=== PATIENT | male | born 1990 | race Caucasian/White ===

== ENCOUNTER 2020-05-26 14:11 | Inpatient (IN) ==
[2020-05-26] MEDS ORDERED: SODIUM CHLORIDE 0.9% 1000ML 1,000 ML IV STA ×2 (14:39→16:18)
[2020-05-26] MEDS ORDERED: METOCLOPRAMIDE HCL INJ 5 MG/ML 2 ML VIAL IV STA (15:15)
[2020-05-26] MEDS ORDERED: diphenhydrAMINE 50 MG/ML VIAL IV STA (15:15)
[2020-05-26] MEDS ORDERED: LORazepam 1 MG/2 ML VIAL IV STA (15:15)
[2020-05-26 15:20] LABS: Basophils # (auto) 0.01 K/uL (0-0.2); Basophils % (auto) 0.2 %; Eosinophils # (auto) 0.02 K/uL (0-0.5); Eosinophils % (auto) 0.4 %; Hematocrit (blood only) 35.9 % (42-52); Hemoglobin 12.3 g/dL (14.0-18.0); Immature Granulocytes # (auto) 0.04 K/uL (0.00-0.02); Immature Granulocytes % (auto) 0.8 %; Lymphocytes # (auto) 0.63 K/uL (1.2-3.4); Mean Corpuscular Hemoglobin 34.1 pg (25-34); Mean Corpuscular Hgb Conc 34.3 g/dL (32-36); Mean Corpuscular Volume 99.4 fL (80-100); Mean Platelet Volume 9.1 fL (7.4-10.4); Monocytes # (auto) 0.49 K/uL (0.11-0.59); Monocytes % (auto) 10.1 %; Neutrophils # (auto) 3.66 K/uL (1.4-6.5); Neutrophils % (auto) 75.5 %; Platelet Count 194 K/uL (130-400); RDW Coefficient of Variation 16.2 % (11.5-14.5); RDW Standard Deviation 58.5 fL (36.4-46.3); Red Blood Count 3.61 M/uL (4.7-6.1); White Blood Count 4.85 K/uL (4.8-10.8)
[2020-05-26 15:37] LABS: Alanine Aminotransferase 189 U/L (12-78); Albumin Level 3.5 gm/dl (3.4-5.0); Aspartate Aminotransferase 250 U/L (15-37); BUN Creatinine Ratio 15.6 (10-20); Blood Urea Nitrogen 9 mg/dl (7-18); Carbon Dioxide 27 mmol/L (21-32); Chloride 91 mmol/L (98-107); Creatinine Clr Calc Pharmacy 222.2 ml/min; Est GFR (African American) > 150.0; Est GFR (Non-African American) 137.8; Glucose 115 mg/dl (70-99); Lipase 319 U/L (73-393); Sodium 130 mmol/L (136-145)
[2020-05-26 15:40] LABS: Albumin Globulin Ratio 0.9 (0.9-2); Alkaline Phosphatase 303 U/L (45-117); Bilirubin,Total 2.9 mg/dl (0.2-1); Total Protein 7.5 gm/dl (6.4-8.2)
[2020-05-26] MEDS: POTASSIUM CHLORIDE / WTR 10 MEQ/100 ML PLCT IV SCH ×3 (16:23→23:48)
--- NOTE | 2020-05-26 16:56 | Ultrasound Report ---
US gallbladder CLINICAL HISTORY: elevated LFTs COMPARISON STUDY: No previous studies for comparison. FINDINGS: Visualized portions the pancreas appeared unremarkable. The liver was of increased echogenicity and difficult to penetrate. The findings are suggestive of he patic steatosis. There is no ductal dilatation. The common bile duct measures 4 mm. There is no right-sided hydronephrosis. No gallstones were visualized. Equivocal trace sludge within the gallbladder, may be artifactual. IMPRESSION: 1. Increased hepatic echogenicity, nonspecific finding most often seen in hepatic steatosis. Mild hep atomegaly 2. No gallstones identified. Trace gallbladder sludge versus artifact 3. No evidence of ductal dilatation ACT 112: Negative or not required by law. Electronically signed by: Darryn Christopher M.D. 05/26/2020 4:55 PM
[2020-05-26 17:58] LABS: INR 1.1 (0.9-1.1); Prothrombin Time 10.9 Seconds (9.0-12.0)
--- NOTE | 2020-05-26 18:00 | Emergency Department Note ---
Impression & Plan Nausea & vomiting, Elevated LFTs, Hypokalemia ED Provider Note INFORMANT: Patient ED PROVIDER(S): Arvind Moctezuma MD CHIEF COMPLAINT: Vomiting PLAN: Disposition: Admitted Condition: Good Outpatient prescription management: none Referral: None MEDICAL DECISION MAKING: Patient presented because of vomiting. An IV was established. He was treated with IV Reglan, Benadryl, and Ativan. He was hydrated. His potassium was found to be mildly low and he was given IV potassium. The patient was given gentle saline hydration as well. The patient underwent ultrasound imaging secondary to elevated LFTs. His ultrasound imaging did not reveal any significant findings. INR is pending. Consultation was made with Dr. Yanira Pope from GI. He recommended inpatient treatment with electrolyte replacement, monitoring of LFTs, MRCP, and consultation with Dr. Barrett tomorrow. I did place a consult with Dr. Landeros of the hospitalist service. Patient will be admitted for further management. Patient and mother pleased with the treatment and plan of further work-up in the hospital. Triage Nursing notes reviewed and agree them. Additional history obtained from patient's mother Vital Signs: reviewed and remarkable for no significant abnormalities Differential diagnosis: Etiologies such as gastroenteritis, food borne illness, infections, appendicitis, diverticulitis, inflammatory bowel disease, GI bleed, biliary pathology, as well as others were entertained. Diagnostics interpreted by me: ECG: Twelve-lead ECG reveals normal sinus rhythm at 96 bpm. LVH. Prolonged QT interval present. No ST elevation or depression. No PACs or PVCs. Normal axis. Cardiac Monitoring: Cardiac monitoring ordered by me: The patient was placed on continuous cardiac monitoring and observed. It revealed a normal sinus rhythm at 99 beats per minute without ectopy or evidence of dysrhythmia. Imaging studies: Gallbladder ultrasound negative for acute pathology as noted above. I refer you to the EMR. Consultation(s): Gastroenterology Hospitalist service HPI: The patient is a 29 year old male who presents to the Emergency Room with complaints of nausea and vomiting. This started intermittently several months ago and is worsening. The patient also notes the following associated symptoms, weakness, fatigue. The patient has been prescribed Zofran and potassium unsuccessfully for relieving factors. Current pain is rated as 0/10. Patient states he had an evaluation in [place] where he is from which included a CAT scan and ultrasound. He reports that those are negative. He does not have the results with him. He states that he was only found to have a fatty liver. He has no history of elevated liver functions. He denies any significant Tylenol use or alcohol use. Patient denies marijuana use as well. No sick contacts. Given his illness he is currently staying with his mother locally. Pt denies LOC, headache, fevers, chills, diaphoresis, visual changes, neck pain, chest pain, breathing difficulties, abdominal pain, back pain, melena, hematochezia, urinary symptoms, numbness, lymphadenopathy, rash, or other complaints. ROS: See above HPI for pertinent positives & negatives. A total of 10 systems reviewed and were otherwise negative. PAST MEDICAL HISTORY:See Below , anxiety PAST SURGICAL HISTORY:See Below, FAMILY HISTORY:See Below SOCIAL HISTORY:See Below, no alcohol HOME MEDICATIONS:See Below ALLERGIES:See Below VITALS:See Below PHYSICAL EXAMINATION: GENERAL: Awake, alert, uncomfortable-appearing, in no distress HENT: Normocephalic, atraumatic. Oropharynx unremarkable. EYES: Normal conjunctiva. Sclera mildly icteric. NECK: Inspection normal. Non-tender. Supple. No nuchal rigidity. FROM. No masses. RESPIRATORY: Clear to auscultation. No wheezes. No rales. Normal respiratory effort. CARDIAC: Normal rate. Normal rhythm. No murmurs. No rubs. Extremities warm and well perfused. Pulses equal. No JVD. GI: Soft, non-distended. No tenderness to palpation. No rebound or guarding. No masses. RECTAL: Deferred. MUSCULOSKELETAL: Atraumatic. Chest examination reveals no tenderness. The back is symmetrical on inspection without obvious abnormality. There is no CVA tenderness to palpation. No joint edema. LOWER EXTREMITIES: Calves are equal size bilaterally and non-tender. No edema. No discoloration. NEURO: Normal sensorium. No sensory or motor deficits noted. SKIN: No rash or jaundice noted. Arvind Moctezuma MD Past Med/Surg History Social History Smoking Status: Never smoker Feels Safe at Home: Yes Allergies Allergies Allergy/AdvReac Type Severity Reaction Status Date / Time No Known Allergies Allergy Unverified 05/26/20 15:50 Home Meds Home Medications Medication Instructions Recorded Confirmed escitalopram oxalate 20 mg PO DAILY 05/26/20 05/26/20 lisinopril 20 mg PO DAILY 05/26/20 05/26/20 nitrofurantoin monohyd/m-cryst 100 mg PO BID 05/26/20 05/26/20 omeprazole 40 mg PO DAILY 05/26/20 05/26/20 ondansetron HCl 4 mg PO Q6H PRN 05/26/20 05/26/20 potassium chloride 20 meq PO BID 05/26/20 05/26/20 Results & Data (ED) Vital Signs Vital Signs - 24 hr 05/26/20 14:15 05/26/20 14:37 05/26/20 14:41 Temperature 36.7 C Temperature Source Temporal Artery Scan Pulse Rate 122 H 100 H 104 H Pulse Rate [Apical] 103 H Pulse Rate from SpO2 Sensor 102 H 102 H Pulse Rhythm Regular Pulse Rhythm [Apical] Regular Pulse Strength Normal Pulse Strength [Apical] Normal Respiratory Rate 24 12 22 Respiratory Effort / Characteristics Non-Labored Spontaneous Non-Labored Spontaneous Respiratory Depth Normal Normal Respiratory Pattern Regular Blood Pressure 125/88 136/83 Blood Pressure [Left Arm] 136/83 Blood Pressure Mean 100 100 Blood Pressure Mean [Left Arm] 100 Blood Pressure Position [Left Arm] Semi-fowlers Pulse Oximetry 100 97 98 Oxygen Delivery Method Room Air Room Air Sepsis Recent Fever Within 48 Hours No Sepsis New/Unexplained Change in Mental Status N/A Sepsis Action Taken by Nursing No Action Required 05/26/20 14:50 05/26/20 14:53 05/26/20 15:00 Temperature Temperature Source Pulse Rate 99 H 102 H 99 H Pulse Rate [Apical] Pulse Rate from SpO2 Sensor 99 H 99 H Pulse Rhythm Regular Pulse Rhythm [Apical] Pulse Strength Pulse Strength [Apical] Respiratory Rate 20 20 17 Respiratory Effort / Characteristics Respiratory Depth Respiratory Pattern Blood Pressure 120/79 Blood Pressure [Left Arm] Blood Pressure Mean 92 Blood Pressure Mean [Left Arm] Blood Pressure Position [Left Arm] Pulse Oximetry 96 98 93 Oxygen Delivery Method Room Air Sepsis Recent Fever Within 48 Hours Sepsis New/Unexplained Change in Mental Status Sepsis Action Taken by Nursing 05/26/20 15:01 05/26/20 15:10 05/26/20 15:20 Temperature Temperature Source Pulse Rate 96 H 97 H 91 H Pulse Rate [Apical] Pulse Rate from SpO2 Sensor 96 H 97 H 92 H Pulse Rhythm Pulse Rhythm [Apical] Pulse Strength Pulse Strength [Apical] Respiratory Rate 17 21 12 Respiratory Effort / Characteristics Respiratory Depth Respiratory Pattern Blood Pressure Blood Pressure [Left Arm] Blood Pressure Mean Blood Pressure Mean [Left Arm] Blood Pressure Position [Left Arm] Pulse Oximetry 97 98 99 Oxygen Delivery Method Sepsis Recent Fever Within 48 Hours Sepsis New/Unexplained Change in Mental Status Sepsis Action Taken by Nursing 05/26/20 15:30 05/26/20 15:31 05/26/20 15:40 Temperature Temperature Source Pulse Rate 85 88 89 Pulse Rate [Apical] Pulse Rate from SpO2 Sensor 85 90 87 Pulse Rhythm Pulse Rhythm [Apical] Pulse Strength Pulse Strength [Apical] Respiratory Rate 18 19 13 Respiratory Effort / Characteristics Respiratory Depth Respiratory Pattern Blood Pressure 120/88 Blood Pressure [Left Arm] Blood Pressure Mean 98 Blood Pressure Mean [Left Arm] Blood Pressure Position [Left Arm] Pulse Oximetry 99 99 100 Oxygen Delivery Method Sepsis Recent Fever Within 48 Hours Sepsis New/Unexplained Change in Mental Status Sepsis Action Taken by Nursing 05/26/20 15:50 05/26/20 16:00 05/26/20 16:01 Temperature Temperature Source Pulse Rate 90 89 95 H Pulse Rate [Apical] Pulse Rate from SpO2 Sensor 90 88 94 H Pulse Rhythm Pulse Rhythm [Apical] Pulse Strength Pulse Strength [Apical] Respiratory Rate 18 17 19 Respiratory Effort / Characteristics Respiratory Depth Respiratory Pattern Blood Pressure 123/70 Blood Pressure [Left Arm] Blood Pressure Mean 87 Blood Pressure Mean [Left Arm] Blood Pressure Position [Left Arm] Pulse Oximetry 100 100 99 Oxygen Delivery Method Sepsis Recent Fever Within 48 Hours Sepsis New/Unexplained Change in Mental Status Sepsis Action Taken by Nursing 05/26/20 16:10 05/26/20 16:20 05/26/20 16:58 Temperature Temperature Source Pulse Rate 88 89 Pulse Rate [Apical] Pulse Rate from SpO2 Sensor 89 88 113 H Pulse Rhythm Pulse Rhythm [Apical] Pulse Strength Pulse Strength [Apical] Respiratory Rate 19 19 Respiratory Effort / Characteristics Respiratory Depth Respiratory Pattern Blood Pressure Blood Pressure [Left Arm] Blood Pressure Mean Blood Pressure Mean [Left Arm] Blood Pressure Position [Left Arm] Pulse Oximetry 97 98 95 Oxygen Delivery Method Sepsis Recent Fever Within 48 Hours Sepsis New/Unexplained Change in Mental Status Sepsis Action Taken by Nursing 05/26/20 16:59 05/26/20 17:00 05/26/20 17:01 Temperature Temperature Source Pulse Rate 99 H Pulse Rate [Apical] Pulse Rate from SpO2 Sensor 105 H 99 H 100 H Pulse Rhythm Pulse Rhythm [Apical] Pulse Strength Pulse Strength [Apical] Respiratory Rate 20 Respiratory Effort / Characteristics Respiratory Depth Respiratory Pattern Blood Pressure 116/75 118/81 Blood Pressure [Left Arm] Blood Pressure Mean 88 93 Blood Pressure Mean [Left Arm] Blood Pressure Position [Left Arm] Pulse Oximetry 99 95 98 Oxygen Delivery Method Sepsis Recent Fever Within 48 Hours Sepsis New/Unexplained Change in Mental Status Sepsis Action Taken by Nursing Laboratory Data Result diagrams: 05/26/20 15:01 05/26/20 15:01 Lab Results 05/26/20 05/26/20 05/26/20 Range/Units 14:43 15:01 15:01 WBC 4.85 (4.8-10.8) K/uL RBC 3.61 L (4.7-6.1) M/uL Hgb 12.3 L (14.0-18.0) g/dL Hct 35.9 L (42-52) % MCV 99.4 (80-100) fL MCH 34.1 H (25-34) pg MCHC 34.3 (32-36) g/dL RDW Std Deviation 58.5 H (36.4-46.3) fL RDW Coeff of Donal 16.2 H (11.5-14.5) % Plt Count 194 (130-400) K/uL MPV 9.1 (7.4-10.4) fL Immature Gran % (Auto) 0.8 % Neut % (Auto) 75.5 % Lymph % (Auto) 13.0 % Cedar % (Auto) 10.1 % Eos % (Auto) 0.4 % Baso % (Auto) 0.2 % Neut # (Auto) 3.66 (1.4-6.5) K/uL Lymph # (Auto) 0.63 L (1.2-3.4) K/uL Cedar # (Auto) 0.49 (0.11-0.59) K/uL Eos # (Auto) 0.02 (0-0.5) K/uL Baso # (Auto) 0.01 (0-0.2) K/uL Immature Gran # (Auto) 0.04 H (0.00-0.02) K/uL Sodium 130 L (136-145) mmol/L Potassium 3.0 L (3.5-5.1) mmol/L Chloride 91 L (98-107) mmol/L Carbon Dioxide 27 (21-32) mmol/L Anion Gap 12.0 H (3-11) BUN 9 (7-18) mg/dl Creatinine 0.56 L (0.6-1.4) mg/dl Est Cr Clr Drug Dosing 222.2 ml/min Est GFR ( Amer) > 150.0 Est GFR (Non-Af Amer) 137.8 BUN/Creatinine Ratio 15.6 (10-20) Glucose 115 H (70-99) mg/dl POC Glucose 127 H (70-99) mg/dl Calcium 10.0 (8.5-10.1) mg/dl Total Bilirubin 2.9 H (0.2-1) mg/dl AST 250 H (15-37) U/L ALT 189 H (12-78) U/L Alkaline Phosphatase 303 H (45-117) U/L Total Protein 7.5 (6.4-8.2) gm/dl Albumin 3.5 (3.4-5.0) gm/dl Globulin 4.0 (2.5-4.0) gm/dl Albumin/Globulin Ratio 0.9 (0.9-2) Lipase 319 (73-393) U/L COVID-19 Eval Order 05/26/20 Range/Units 17:30 WBC (4.8-10.8) K/uL RBC (4.7-6.1) M/uL Hgb (14.0-18.0) g/dL Hct (42-52) % MCV (80-100) fL MCH (25-34) pg MCHC (32-36) g/dL RDW Std Deviation (36.4-46.3) fL RDW Coeff of Donal (11.5-14.5) % Plt Count (130-400) K/uL MPV (7.4-10.4) fL Immature Gran % (Auto) % Neut % (Auto) % Lymph % (Auto) % Cedar % (Auto) % Eos % (Auto) % Baso % (Auto) % Neut # (Auto) (1.4-6.5) K/uL Lymph # (Auto) (1.2-3.4) K/uL Cedar # (Auto) (0.11-0.59) K/uL Eos # (Auto) (0-0.5) K/uL Baso # (Auto) (0-0.2) K/uL Immature Gran # (Auto) (0.00-0.02) K/uL Sodium (136-145) mmol/L Potassium (3.5-5.1) mmol/L Chloride (98-107) mmol/L Carbon Dioxide (21-32) mmol/L Anion Gap (3-11) BUN (7-18) mg/dl Creatinine (0.6-1.4) mg/dl Est Cr Clr Drug Dosing ml/min Est GFR ( Amer) Est GFR (Non-Af Amer) BUN/Creatinine Ratio (10-20) Glucose (70-99) mg/dl POC Glucose (70-99) mg/dl Calcium (8.5-10.1) mg/dl Total Bilirubin (0.2-1) mg/dl AST (15-37) U/L ALT (12-78) U/L Alkaline Phosphatase (45-117) U/L Total Protein (6.4-8.2) gm/dl Albumin (3.4-5.0) gm/dl Globulin (2.5-4.0) gm/dl Albumin/Globulin Ratio (0.9-2) Lipase (73-393) U/L COVID-19 Eval [facility] Administered Medications Potassium Chloride (K Mendel / Wtr) 10 meq in 100 mls @ 100 mls/hr IV Q1H DOLORES Stop: 05/26/20 18:29 Last Admin: 05/26/20 16:23 Dose: 100 mls/hr Documented by: [id number] Sodium Chloride (Nss 1000ml) 1,000 mls @ 125 mls/hr IV .Q8H STA Stop: 05/27/20 00:17 Last Admin: 05/26/20 16:23 Dose: 125 mls/hr Documented by: [id number] Discontinued Medications Diphenhydramine HCl (Diphenhydramine 50 Mg/Ml Vial) 25 mg IV NOW STA Stop: 05/26/20 15:16 Last Admin: 05/26/20 15:26 Dose: 25 mg Documented by: [id number] Sodium Chloride (Nss 1000ml) 1,000 mls @ 999 mls/hr IV .Q1H1M STA Stop: 05/26/20 15:39 Last Infusion: 05/26/20 16:13 Dose: 0 mls/hr Documented by: [id number] Admin: 05/26/20 15:02 Dose: 999 mls/hr Documented by: [id number] Lorazepam (Ativan) 1 mg in 2 mls @ 2 mls/min IV NOW STA Stop: 05/26/20 15:16 Last Admin: 05/26/20 15:26 Dose: 2 mls/min Documented by: [id number] Metoclopramide HCl (Metoclopramide Hcl Inj 5 Mg/Ml 2 Ml Vial) 10 mg IV NOW STA Stop: 05/26/20 15:16 Last Admin: 05/26/20 15:26 Dose: 10 mg Documented by: [id number] Discharge Plan Visit Data Chief Complaint: Vomiting Stated Complaint: THROWING UP/1ST VACCINE YESTERDAY ED Provider: Arvind Moctezuma Discharge Problem: Nausea & vomiting, Elevated LFTs, Hypokalemia Forms Stand Alone Forms: My [facility] Prescriptions Prescriptions: No Action lisinopril 20 mg tablet 20 mg PO DAILY RF: 0 ondansetron HCl 4 mg tablet 4 mg PO Q6H PRN (Reason: Nausea And Vomiting) RF: 0 omeprazole 40 mg capsule,delayed release(DR/EC) 40 mg PO DAILY RF: 0 potassium chloride 20 mEq tablet,ER particles/crystals 20 meq PO BID RF: 0 escitalopram oxalate 20 mg tablet 20 mg PO DAILY RF: 0 nitrofurantoin monohyd/m-cryst 100 mg capsule 100 mg PO BID RF: 0
--- NOTE | 2020-05-26 18:09 | History & Physical Report ---
Date of Service May 26, 2020 Assessment & Plan (1) Acute hyponatremia: Secondary to alcohol consumption and dehydration NSS @125 mL (2) Hypokalemia: Replace in IV fluids Repeat BMP in AM (3) GERD (gastroesophageal reflux disease): Continue pantoprazole 40mg PO BID If no plans on EGD consider carafate Consult GI (4) Hepatic steatosis: Suspected alcoholic liver disease. Basic workup performed with hepatitis panel, acetaminophen level MRCP and will consult GI (5) Elevated LFTs: Unknown if this is his baseline but I suspect it is secondary to alcohol intake Repeat with AM labs (6) Alcohol use disorder: Encouraged complete cessation. Consider outpatient alcoholic Anonymous / rehabilitation. (7) Nausea & vomiting: Advance diet as tolerated Use Phenergan first-line Ativan second line Suspect related to GERD rather than alcohol withdrawal per history (8) Ambulatory dysfunction: ?Peripheral neuropathy versus Wernicke's (no nystagmus or encephalopathy) Mg, B1 and B12 levels with AM labs Start thiamine 100mg PO QAM (9) Prolonged QT interval: Continue on his usual Lexapro 20 mg p.o. daily but avoid further QT prolonging agents including ondansetron. Admission and Anticipated Discharge Date Admission Date: May 26, 2020 History of Present Illness Chief Complaint: Nausea, vomiting Primary Care Provider: Pranav Thomas MD Lex Cao is a 29-year-old male who presents to the ER with abdominal pain, nausea, vomiting. He reports having "stomach issues" since May last year mainly with nausea, dry heaving and vomiting but also generalized mild abdominal pain. He lives in [place] and has been seen by his PCP and a hospital ER (he cannot remember the name) in [place] and diagnosed with hepatic steatosis of unknown cause. He has been seen by a manager philosophy for pre-EGD discussion which he has scheduled for June. While waiting for this he decided to come live with his mother in [place] and on his way down due to worsening ambulatory dysfunction, dry heaving and not being able to keep food or water down for the last few days his mother decided to bring him to [facility] ER on his way up from [place]. Associated generalized weakness, no vision or memory changes. Now needing a cane to walk. He drinks alcohol on a near daily basis with 2-3 hard liquor mixed drinks a day, more on the weekends. He does report discussing this with his GI physician in [place] but mainly talked about getting an EGD. He has continued to drink alcohol. Last drink 2 days ago. He does report usually having mild withdrawal symptoms the day after not drinking alcohol ("feels bad") but no history of alcohol withdrawals needing hospitalization. He feels his nausea/vomiting episodes are unrelated to when he stops drinking and can happen at any time. In the ER US was concerning for hepatic steatosis. Case was discussed between the ER physician and Dr Lopez and recommended ERCP and admission for rehydration, GI to review patient in AM. Allergies Allergy/AdvReac Type Severity Reaction Status Date / Time No Known Allergies Allergy Unverified 05/26/20 15:50 Home Medications Medication Instructions Recorded Confirmed Type escitalopram oxalate 20 mg PO DAILY 05/26/20 05/26/20 History lisinopril 20 mg PO DAILY 05/26/20 05/26/20 History nitrofurantoin monohyd/m-cryst 100 mg PO BID 05/26/20 05/26/20 History omeprazole 40 mg PO DAILY 05/26/20 05/26/20 History ondansetron HCl 4 mg PO Q6H PRN 05/26/20 05/26/20 History potassium chloride 20 meq PO BID 05/26/20 05/26/20 History Past Med/Surg History Medical History GERD (gastroesophageal reflux disease) Hepatic steatosis Social History Smoking Status: Light tobacco smoker Second Hand Exposure: No; Do You Dip or Chew Tobacco: No; Tobacco Cessation Education Requested by Patient: No Hx Alcohol Use: Yes Alcohol type: hard liquor Hx Substance Use: No Preferred Language: [place] Communication Ability: Effective Senior Ui Designer Required: No Beliefs That Will Affect Care: None Current Living Situation: Parent Current Living Situation Comment: Currently staying with Mother in [place], [place]. Other Information That Helps Us Care for You: No Feels Safe at Home: Yes Safety Concerns: Feels Safe At This Time Assistive Devices: Cane Assistive Devices Comment: Cane use started recently for weakness in legs. Review of Systems Review of Systems: All systems reviewed & are unremarkable except as noted in HPI & below Gastrointestinal: + belching, + bloating, + nausea and + vomiting; no coffee ground emesis, no hematemesis, no pain with swallowing, no dysphagia, no constipation, no diarrhea/loose stools, no blood in stools and no melena Physical Exam Constitutional: WD/WN, vitals as above Eyes: sclerae not anicteric and normal pupil size ENMT: external ear and nose normal, oropharynx normal Neck: trachea midline, no thyromegaly Respiratory: normal respiratory effort, lungs clear to auscultation Cardiovascular: RRR, no murmur, no edema Gastrointestinal (Abdomen): Inspection/Auscultation: normal bowel sounds Percussion/Palpation: abdomen soft and + hepatomegaly; abdomen nontender, no guarding and abdomen not rigid Musculoskeletal: no cyanosis or clubbing, extremities motor strength 5/5 Skin: no rashes, warm and dry Neurologic: deep tendon reflexes 2+ bilaterally, moves all extremities and awake; no focal motor deficits and not confused Speech / Cognition: normal speech Motor/Sensory: no tremor and no pronator drift Psychiatric: A+Ox3, euthymic affect Genitourinary: no CVA tenderness Results & Data Results & Data ([facility]) Vital Signs (Past 12 Hours) Vital Signs Temp Pulse Pulse Resp BP BP Pulse Ox 05/26/20 17:01 99 H 20 98 05/26/20 17:00 118/81 95 05/26/20 16:59 116/75 99 05/26/20 16:58 95 05/26/20 16:20 89 19 98 05/26/20 16:10 88 19 97 05/26/20 16:01 95 H 19 99 05/26/20 16:00 89 17 123/70 100 05/26/20 15:50 90 18 100 05/26/20 15:40 89 13 100 05/26/20 15:31 88 19 99 05/26/20 15:30 85 18 120/88 99 05/26/20 15:20 91 H 12 99 05/26/20 15:10 97 H 21 98 05/26/20 15:01 96 H 17 97 05/26/20 15:00 99 H 17 120/79 93 05/26/20 14:53 102 H 20 98 05/26/20 14:50 99 H 20 96 05/26/20 14:41 104 H 22 98 05/26/20 14:37 100 H 103 H 12 136/83 136/83 97 05/26/20 14:15 36.7 C 122 H 24 125/88 100 Diagnostic Findings US gallbladder IMPRESSION: 1. Increased hepatic echogenicity, nonspecific finding most often seen in hepatic steatosis. Mild hepatomegaly 2. No gallstones identified. Trace gallbladder sludge versus artifact 3. No evidence of ductal dilatation Medications Administered ER medications given: NSS 1 hour bolus Metoclopramide 10 mg IV Lorazepam 1 mg IV Diphenhydramine 25 mg IV KCl 20 meq IV ECG Rate (beats per minute): 96 Rhythm: normal sinus Findings: + prolonged QT (QTC 573 ms) Comparison ECG Date: no prior available Code Status & VTE Plan Code Status Full VTE Prophylaxis Plan VTE Prophylaxis will be ordered: No Reason for no VTE drug order: Treatment not indicated Reason for no VTE mechanical prophylaxis: Treatment not indicated PG Care Time/CCT Total # of Minutes Spent Total Time Spent with Patient: Total time spent is greater than 50% in coordination of care (as documented) at patient's floor/unit and/or counseling patient: Coding Level of Care Code 25848 OBS Care - Level 3 Diagnoses Acute hyponatremia E87.1 Hypokalemia E87.6 GERD (gastroesophageal reflux disease) K21.9 Hepatic steatosis K76.0 Elevated LFTs R79.89 Alcohol use disorder Nausea & vomiting R11.2 Ambulatory dysfunction R26.2 Prolonged QT interval R94.31
[2020-05-26 19:50] LABS: Ferritin 2797.2 ng/ml (8-388); Thyroid Stimulating Hormone 1.73 uIu/ml (0.300-4.500)
--- NOTE | 2020-05-26 19:55 | Magnetic Resonance Report ---
MR MRCP CLINICAL HISTORY: Abnormal liver tests, nausea and vomiting. Possible choledocholithiasis. COMPARISON STUDY: Biliary ultrasound performed the same day FINDINGS: A breath-hold MRCP was performed. MIP images were acquired. The liver is enlarged measuring 24 cm. There is suspected hepatic steatosis. There is borderline splenomegaly. No gallstones are visualized. There is no intra or extrahepatic biliary ductal dilatation. There is no pancreatic ductal dilatation. The common bile duct measures 3 mm. There are no ductal filling defects to indicate calculi. There are borderline enlarged lymph nodes in the gastrohepatic ligament and sebastian hepatis region IMPRESSION: 1. No gallstones identified. No biliary ductal calculi identified 2. No evidence of intra or extra hepatic biliary ductal dilatation. 3 mm common bile duct 3. Hepatomegaly. Suspected hepatic steatosis. Borderline splenomegaly 4. Borderline enlarged lymph nodes in the gastrohepatic ligament and sebastian hepatis region ACT 112: Negative or not required by law. Electronically signed by: Darryn Christopher M.D. 05/26/2020 7:54 PM
[2020-05-26 19:57] LABS: Hepatitis B Surf Ag Rflx Conf Neg (Neg)
[2020-05-26 20:25] LABS: Hepatitis C IgG 13Yrs+Old_Rflx Neg (Neg)
[2020-05-26] MEDS ORDERED: POTASSIUM CHLORIDE CRTAB 20 MEQ TABCR PO SCH (21:00)
[2020-05-26 22:54] LABS: Appearance Urine Clear (Clear); Bacteria Urine Automated Negative (Negative); Blood Urine Negative (Negative); Color Urine Dark Yellow; Glucose Urine UA Negative (Negative); Ketones Urine 3+ (Negative); Leukocyte Esterase Urine Negative (Negative); Nitrite Urine Positive (Negative); Protein Urine Negative (Negative); RBC Urine Automated 0-4 /hpf (0-4); Specific Gravity Urine 1.018 (1.000-1.030); Urobilinogen Urine Positive (Negative)
[2020-05-26 22:58] LABS: Bilirubin Urine 2+ (Negative)
[2020-05-26] MEDS ORDERED: LORazepam 1 MG/2 ML VIAL IV PRN (23:18)
[2020-05-26] MEDS ORDERED: PROMETHAZINE HCL 12.5 MG in SODIUM CHLORIDE 0.9% 50 ML IV PRN (23:18)
[2020-05-27] MEDS: POTASSIUM CHLORIDE / WTR 10 MEQ/100 ML PLCT IV SCH (00:53)
[2020-05-27] MEDS: POTASSIUM CHLORIDE 40 MEQ in SODIUM CHLORIDE 0.9% 1000ML 1,000 ML IV SCH ×2 (00:56→11:56)
--- NOTE | 2020-05-27 07:18 | Electrocardiogram Report ---
Test Reason : Blood Pressure : / mmHG Vent. Rate : 096 BPM Atrial Rate : 096 BPM P-R Int : 152 ms QRS Dur : 108 ms QT Int : 428 ms P-R-T Axes : 020 000 020 degrees QTc Int : 541 ms Normal sinus rhythm Minimal voltage criteria for LVH, may be normal variant Prolonged QT Abnormal ECG No previous ECGs available Confirmed by Kuldip Herring ([id number]) on 05/27/2020 7:17:56 AM Referred By: REFERRED SELF Confirmed By:Kuldip Herring
[2020-05-27] MEDS: PANTOprazole 40 MG TAB PO SCH ×2 (08:04→21:27)
[2020-05-27] MEDS: ESCITALOPRAM OXALATE 20 MG TAB PO SCH (08:04)
[2020-05-27] MEDS ORDERED: THIAMINE HCL 100 MG TAB PO SCH (09:00)
[2020-05-27] MEDS ORDERED: PANTOprazole 40 MG TAB PO SCH (09:00)
[2020-05-27 09:27] LABS: Hematocrit (blood only) 30.4 % (42-52); Hemoglobin 10.5 g/dL (14.0-18.0); Mean Corpuscular Hemoglobin 34.4 pg (25-34); Mean Corpuscular Hgb Conc 34.5 g/dL (32-36); Mean Corpuscular Volume 99.7 fL (80-100); Mean Platelet Volume 8.7 fL (7.4-10.4); Platelet Count 153 K/uL (130-400); RDW Coefficient of Variation 16.2 % (11.5-14.5); Red Blood Count 3.05 M/uL (4.7-6.1); White Blood Count 3.78 K/uL (4.8-10.8)
[2020-05-27 09:49] LABS: Alanine Aminotransferase 160 U/L (12-78); Albumin Level 2.9 gm/dl (3.4-5.0); Aspartate Aminotransferase 215 U/L (15-37); Blood Urea Nitrogen 4 mg/dl (7-18); Calcium 8.7 mg/dl (8.5-10.1); Carbon Dioxide 24 mmol/L (21-32); Chloride 101 mmol/L (98-107); Creatinine Clr Calc Pharmacy 289.4 ml/min; Est GFR (African American) > 150.0; Est GFR (Non-African American) > 150.0; Glucose 108 mg/dl (70-99); Magnesium 1.6 mg/dl (1.8-2.4); Potassium 3.6 mmol/L (3.5-5.1); Sodium 135 mmol/L (136-145)
[2020-05-27 09:52] LABS: Albumin Globulin Ratio 0.9 (0.9-2); Alkaline Phosphatase 252 U/L (45-117); Bilirubin,Total 2.1 mg/dl (0.2-1); Globulin 3.2 gm/dl (2.5-4.0); Total Protein 6.1 gm/dl (6.4-8.2)
[2020-05-27] MEDS ORDERED: FOLIC ACID 1 MG in SYRINGE 9.8 ML IV ONE (10:30)
[2020-05-27] MEDS: MAGNESIUM SULFATE / D5W 1 GM/100 ML BAG IV SCH ×2 (11:13→13:19)
--- NOTE | 2020-05-27 12:59 | Gastrointestinal Consultation ---
Date of Consultation May 27, 2020 Assessment & Plan (1) GERD (gastroesophageal reflux disease): (2) Abdominal pain: (3) Nausea & vomiting: (4) Elevated LFTs: Continue Pantoprazole 40 mg by mouth twice daily He will need EGD for further evaluation of his symptoms Continue supportive care Discussed case with Dr. George History of Present Illness Reason for Consultation: Elevated LFT's Attending Physician: Isidro George History of Present Illness Lex Cao is a 29 yo CM who presented to the ER with complaints of abdominal pain, nausea, and vomiting. Upon arrival to the ER, he was noted to have significant elevations of his LFT's, as well as anemia. He underwent a RUQ US which showed evidence of hepatic steatosis, but no evidence of cholelithiasis, or CBD dilation. He subsequently underwent an MRCP again without evidence of cholelithiasis or CBD dilation. He was subsequently admitted and placed on Pantoprazole 40 mg by mouth BID and was treated supportively with antiemetics. At the time that I saw him this AM he continued to complain of some nausea and did have a single episode of non-bloody emesis. He did tolerate a regular breakfast this AM. Of note, he admits to a 40 lb unintentional weight loss over the past 6 months. He also admits to significant alcohol intake. He states he was scheduled for an EGD next week in [place], where he currently resides, however, he has been living with his parents due to "feeling poorly." Allergies Allergy/AdvReac Type Severity Reaction Status Date / Time No Known Allergies Allergy Unverified 05/26/20 15:50 Home Medications Medication Instructions Recorded Confirmed Type escitalopram oxalate 20 mg PO DAILY 05/26/20 05/26/20 History lisinopril 20 mg PO DAILY 05/26/20 05/26/20 History nitrofurantoin monohyd/m-cryst 100 mg PO BID 05/26/20 05/26/20 History omeprazole 40 mg PO DAILY 05/26/20 05/26/20 History ondansetron HCl 4 mg PO Q6H PRN 05/26/20 05/26/20 History potassium chloride 20 meq PO BID 05/26/20 05/26/20 History Patient History Medical History GERD (gastroesophageal reflux disease) Hepatic steatosis Social History Smoking Status: Light tobacco smoker Second Hand Exposure: No; Do You Dip or Chew Tobacco: No; Tobacco Cessation Education Requested by Patient: No Hx Alcohol Use: Yes Alcohol type: hard liquor Hx Substance Use: No Preferred Language: Telugu Communication Ability: Effective 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 Other Information That Helps Us Care for You: No Feels Safe at Home: Yes Safety Concerns: Feels Safe At This Time Assistive Devices: None Assistive Devices Comment: Cane use started recently for weakness in legs. Review of Systems Review of Systems: All systems reviewed & are unremarkable except as noted in HPI & below Physical Exam Constitutional: WD/WN, vitals as above Eyes: + anicteric sclerae ENMT: external ear and nose normal, oropharynx normal Neck: trachea midline, no thyromegaly Respiratory: normal respiratory effort, lungs clear to auscultation Cardiovascular: RRR, no murmur, no edema Gastrointestinal (Abdomen): normal bowel sounds, soft, nontender, no hepatosplenomegaly Skin: no rashes, warm and dry Psychiatric: A+Ox3, euthymic affect Results & Data ([facility]) Vital Signs (Past 12 Hours) Vital Signs Temp Pulse Resp BP Pulse Ox 05/27/20 07:28 36.7 C 102 H 16 141/91 H 97 PG Care Time/CCT Total # of Minutes Spent Total Time Spent with Patient: Total time spent is greater than 50% in coordination of care (as documented) at patient's floor/unit and/or counseling patient: Coding Level of Care Code 89799 Inpt Consult Level 4 Diagnoses GERD (gastroesophageal reflux disease) K21.9 Abdominal pain R10.9 Nausea & vomiting R11.2 Elevated LFTs R79.89
[2020-05-27] MEDS: NSS + 20MEQ KCL 20 MEQ/1,000 ML BAG IV SCH (13:18)
[2020-05-27] MEDS: THIAMINE HCL 200 MG in SODIUM CHLORIDE 0.9% 50 ML IV SCH (21:27)
--- NOTE | 2020-05-27 22:39 | Hospitalist Progress Note ---
Date of Service May 27, 2020 Assessment & Plan (1) Nausea & vomiting: Chronic, with associated weight loss. GI consult appreciated. Likely EGD on Friday. In meantime - PPI. Check cortisol in am. MRCP/RUQ u/s results reviewed - no evidence cholecystitis or choledocholithiasis. No pancreatitis on labs or imaging. So far tolerating his diet here. (2) Acute hyponatremia: Improved; Na 135 this am. Cont isotonic fluids; repeat BMP am. (3) Hypokalemia: 2nd to poor oral intake, alcohol abuse, etc. Cont replacement. Fix low mag. Repeat lytes am. (4) GERD (gastroesophageal reflux disease): Continue pantoprazole 40mg PO BID EGD on Friday diet as tolerated. (5) Hepatic steatosis: Fatty liver / alcoholic liver disease. Abnormal LFTs - uncertain baseline, uncertain if acute or chronic or combination. Trend daily LFTs. Needs alcohol cessation tabatha. (6) Elevated LFTs: 2nd to alcohol use. Uncertain how acute vs chronic; daily LFTs. INR intact. Platelets ok. GI consult appreciated. Imaging results all noted. Ferritin high, but trans-sat wnl. Suspect ferritin is high from chronic alcohol. (7) Alcohol use disorder: Encouraged abstinence. Uncertain of where he stands on quitting. (8) Ambulatory dysfunction: Uncertain cause but seems to have proximal muscle weakness in hip region. Alcohol-induced myopathy? Other myositis/myopathy? CPK wnl. B12 wnl. B1 level pending -- in meantime, thiamine 200mg BID. Check sed rate, lyme Ab's, aldolase, etc. I spoke with Dr Gregorio re: his case; consult placed. PT, OT evals. Consider MRI brain, MRI lumbar spine. (9) Prolonged QT interval: Likely 2nd to low K and low mag. Replete both. Will need repeat EKG. (10) Hypomagnesemia: Replete IV; repeat level am. (11) Proximal muscle weakness: see above in "ambulatory dysfunction" (12) DVT prophylaxis: lovenox 40mg daily mother extensively updated at bedside care dw Dr Barrett and Dr Gregorio Admission and Anticipated Discharge Date Admission Date: May 26, 2020 Subjective patient's mother was at bedside during the visit. both provided history. he was in the emergency room a few weeks ago in a [facility] ER for abdominal pain. was told he had fatty liver. was to have GI f/u in [facility] in June. he has had nausea with GI upset/abd pain for about 1 year. during this time period he has continued daily bourbon use - at least 3-4 drinks/day but often more. he has had leg weakness b/l for 6+ months but getting worse in the last 1-2 months. he is now using a cane to ambulate. he has to pull himself up from the toilet by using something to grab on to. also has hard time getting up from chair. arms are fine. no myalgias. does report b/l paresthesias of legs from the knees down to the feet. denies bowel/bladder incontinence or paresthesias over buttocks. nausea starts first thing in the am upon awakening. no nocturnal vomiting or AM vomiting. denies headaches. denies neck pain. some mild lumbar back pain after he had a mild injury a few weeks ago. Review of Systems Constitutional: + weight loss (40 pounds in the last year ); no fever and no chills Respiratory: no cough and no dyspnea Cardiovascular: no chest pain Gastrointestinal: + abdominal pain and + nausea Genitourinary: no urinary incontinence Musculoskeletal: + back pain and + muscle atrophy (thighs b/l ); no neck pain, no joint pain and no myalgia Neurologic: + localized weakness (hip regions) and + paresthesia Physical Exam Constitutional: no acute distress and no altered mental status Eyes: PERRL and EOM intact bilaterally; no nystagmus ENMT: external ear and nose normal, oropharynx normal Respiratory: normal respiratory effort, lungs clear to auscultation Cardiovascular: Rate/Rhythm: regular rate and regular rhythm Heart Sounds: normal S1 and normal S2; no murmur Vessels: posterior tibial pulses present and dorsalis pedis pulses present; no JVD Extremities: no edema Gastrointestinal (Abdomen): Inspection/Auscultation: normal bowel sounds; abdomen not distended Percussion/Palpation: abdomen soft and + hepatomegaly; abdomen nontender and no splenomegaly Musculoskeletal: Extremities: + muscle atrophy (b/l thigh muscles anteriorly ); no clubbing Neurologic: proximal muscle weakness in both hips - flexion/extension; knee extension 5/5; ankle dorsiflexion/plantarflexion 5/5 b/l; shoulder girdle strength 5/5 b/l; hand mobile lounge driver or operator 5/5 b/l; DTRs 1-2+ b/l upper and lower exts; babinski - neg on right, equivacol on left Psychiatric: A+Ox3, euthymic affect Results & Data Results & Data ([facility]) Vital Signs (Past 12 Hours) Vital Signs Temp Pulse Resp BP Pulse Ox 05/27/20 14:55 36.6 C 96 H 16 137/91 95 Laboratory Results Laboratory Results - last 24 hr 05/26/20 05/27/20 05/27/20 22:40 09:17 09:17 WBC 3.78 L RBC 3.05 L Hgb 10.5 L Hct 30.4 L MCV 99.7 MCH 34.4 H MCHC 34.5 RDW Std Deviation 58.0 H RDW Coeff of Donal 16.2 H Plt Count 153 MPV 8.7 Sodium 135 L Potassium 3.6 D Chloride 101 Carbon Dioxide 24 Anion Gap 10.0 BUN 4 L D Creatinine 0.43 L Est Cr Clr Drug Dosing 289.4 Est GFR ( Amer) > 150.0 Est GFR (Non-Af Amer) > 150.0 BUN/Creatinine Ratio 9.0 L Glucose 108 H Calcium 8.7 Magnesium 1.6 L Total Bilirubin 2.1 H AST 215 H ALT 160 H Alkaline Phosphatase 252 H Total Protein 6.1 L Albumin 2.9 L Globulin 3.2 Albumin/Globulin Ratio 0.9 Whole Bld Vitamin B1 Vitamin B12 Urine Color Dark Yellow Urine Appearance Clear Urine pH 7.0 Ur Specific [place] 1.018 Urine Protein Negative Urine Glucose (UA) Negative Urine Ketones 3+ H Urine Blood Negative Urine Nitrite Positive A Urine Bilirubin 2+ H Urine Urobilinogen Positive H Ur Leukocyte Esterase Negative Urine WBC (Auto) 1-5 Urine RBC (Auto) 0-4 U Hyaline Cast (Auto) 1-5 U Epithel Cells (Auto) 5-10 H Urine Bacteria (Auto) Negative 05/27/20 05/27/20 09:17 09:17 WBC RBC Hgb Hct MCV MCH MCHC RDW Std Deviation RDW Coeff of Donal Plt Count MPV Sodium Potassium Chloride Carbon Dioxide Anion Gap BUN Creatinine Est Cr Clr Drug Dosing Est GFR ( Amer) Est GFR (Non-Af Amer) BUN/Creatinine Ratio Glucose Calcium Magnesium Total Bilirubin AST ALT Alkaline Phosphatase Total Protein Albumin Globulin Albumin/Globulin Ratio Whole Bld Vitamin B1 Pending Vitamin B12 595 Urine Color Urine Appearance Urine pH Ur Specific [place] Urine Protein Urine Glucose (UA) Urine Ketones Urine Blood Urine Nitrite Urine Bilirubin Urine Urobilinogen Ur Leukocyte Esterase Urine WBC (Auto) Urine RBC (Auto) U Hyaline Cast (Auto) U Epithel Cells (Auto) Urine Bacteria (Auto) PG Care Time/CCT Total # of Minutes Spent Total Time Spent with Patient: Total time spent is greater than 50% in coordination of care (as documented) at patient's floor/unit and/or counseling patient: Coding Level of Care Code 35295 Subseq Hosp Care Lvl 3 Diagnoses Nausea & vomiting R11.2 Vomiting type: unspecified Vomiting Intractability: intractable Acute hyponatremia E87.1 Hypokalemia E87.6 GERD (gastroesophageal reflux disease) K21.9 Esophagitis presence: esophagitis presence not specified Hepatic steatosis K76.0 Elevated LFTs R79.89 Alcohol use disorder Ambulatory dysfunction R26.2 Prolonged QT interval R94.31 Hypomagnesemia E83.42 Proximal muscle weakness M62.81 DVT prophylaxis Z29.9 (1) GERD (gastroesophageal reflux disease) Esophagitis presence: esophagitis presence not specified Qualified Code(s): K21.9 - Gastro-esophageal reflux disease without esophagitis (2) Nausea & vomiting Vomiting type: unspecified Vomiting Intractability: intractable Qualified Code(s): R11.2 - Nausea with vomiting, unspecified
[2020-05-28] MEDS: NSS + 20MEQ KCL 20 MEQ/1,000 ML BAG IV SCH (02:09)
[2020-05-28 04:16] LABS: Hepatitis A Antibody IgM NON-REACTIVE (NON-REACTIVE); Hepatitis B Core Antibody IgM NON-REACTIVE (NON-REACTIVE)
[2020-05-28] MEDS: ACETAMINOPHEN 500 MG TAB PO PRN ×3 (05:45→23:50)
[2020-05-28 07:41] LABS: Basophils # (auto) 0.02 K/uL (0-0.2); Basophils % (auto) 0.5 %; Eosinophils # (auto) 0.05 K/uL (0-0.5); Eosinophils % (auto) 1.2 %; Hemoglobin 10.5 g/dL (14.0-18.0); Immature Granulocytes # (auto) 0.04 K/uL (0.00-0.02); Lymphocytes # (auto) 1.09 K/uL (1.2-3.4); Lymphocytes % (auto) 26.5 %; Mean Corpuscular Hemoglobin 34.2 pg (25-34); Mean Corpuscular Hgb Conc 33.9 g/dL (32-36); Mean Platelet Volume 8.8 fL (7.4-10.4); Monocytes # (auto) 0.49 K/uL (0.11-0.59); Monocytes % (auto) 11.9 %; Neutrophils # (auto) 2.42 K/uL (1.4-6.5); Neutrophils % (auto) 58.9 %; Platelet Count 200 K/uL (130-400); RDW Coefficient of Variation 16.6 % (11.5-14.5); RDW Standard Deviation 60.5 fL (36.4-46.3); Red Blood Count 3.07 M/uL (4.7-6.1); White Blood Count 4.11 K/uL (4.8-10.8)
[2020-05-28 07:59] LABS: Alanine Aminotransferase 188 U/L (12-78); Albumin Level 2.9 gm/dl (3.4-5.0); Aspartate Aminotransferase 235 U/L (15-37); BUN Creatinine Ratio 5.4 (10-20); Blood Urea Nitrogen 3 mg/dl (7-18); Calcium 8.7 mg/dl (8.5-10.1); Carbon Dioxide 26 mmol/L (21-32); Chloride 105 mmol/L (98-107); Creatinine Clr Calc Pharmacy 270.5 ml/min; Est GFR (African American) > 150.0; Est GFR (Non-African American) 149.4; Glucose 88 mg/dl (70-99); Magnesium 1.9 mg/dl (1.8-2.4); Potassium 3.7 mmol/L (3.5-5.1); Sodium 138 mmol/L (136-145)
[2020-05-28 08:02] LABS: Albumin Globulin Ratio 0.9 (0.9-2); Alkaline Phosphatase 281 U/L (45-117); Bilirubin,Total 1.8 mg/dl (0.2-1); Globulin 3.3 gm/dl (2.5-4.0); Phosphorus 2.1 mg/dl (2.5-4.9); Total Protein 6.2 gm/dl (6.4-8.2)
--- NOTE | 2020-05-28 08:31 | Gastroenterology Progress Note ---
Date of Service May 28, 2020 Assessment & Plan (1) Abdominal pain: (2) Nausea & vomiting: (3) Elevated LFTs: Continue Pantoprazole 40 mg by mouth twice daily NPO after midnight EGD in AM for further evaluation of symptoms Check Hemochromatosis genetic panel due to extremely high Ferritin with elevated Liver panel Continue supportive care Admission and Anticipated Discharge Date Admission Date: May 27, 2020 Subjective Feeling slightly better today. Still with some mild epigastric pain, 2/10 in intensity, non-radiating, without alleviating factors, exacerbated by Zullinger juice yesterday. He has had further nausea yesterday as well, and did have one episode of non-bloody emesis. He denies any fevers, chills, hematemesis, melena or hematochezia. He has no further complaints. Review of Systems Review of Systems: All systems reviewed & are unremarkable except as noted in HPI & below Physical Exam Constitutional: WD/WN, vitals as above Eyes: + anicteric sclerae Neck: trachea midline, no thyromegaly Respiratory: normal respiratory effort, lungs clear to auscultation Cardiovascular: RRR, no murmur, no edema Gastrointestinal (Abdomen): normal bowel sounds, soft, nontender, no hepatosplenomegaly Skin: no rashes, warm and dry Psychiatric: A+Ox3, euthymic affect Results & Data Results & Data ([facility]) Vital Signs (Past 12 Hours) Vital Signs Temp Pulse Resp BP BP Pulse Ox 05/28/20 07:24 36.8 C 98 H 16 128/84 97 05/27/20 22:38 37.0 C 110 H 15 120/78 100 PG Care Time/CCT Total # of Minutes Spent Total Time Spent with Patient: Total time spent is greater than 50% in coordination of care (as documented) at patient's floor/unit and/or counseling patient: Coding Level of Care Code 54517 Subseq Hosp Care Lvl 3 Diagnoses Abdominal pain R10.9 Nausea & vomiting R11.2 Vomiting Intractability: intractable Vomiting type: unspecified Elevated LFTs R79.89 (1) Nausea & vomiting Vomiting Intractability: intractable Vomiting type: unspecified Qualified Code(s): R11.2 - Nausea with vomiting, unspecified
[2020-05-28 08:48] LABS: Lyme Ab IgG w/WB Rflx Negative (Negative); Lyme Ab IgM w/WB Rflx Negative (Negative)
--- NOTE | 2020-05-28 09:25 | Neurology Consultation ---
Date of Consultation May 28, 2020 Assessment & Plan (1) Proximal muscle weakness: (2) Dysesthesia: (3) Low back pain: (4) Alcohol use disorder: (5) Elevated LFTs: (6) Abdominal pain: this patient has a subacute to chronic, progressive proximal lower extremity weakness and pain with dysesthesias and sensory loss in the feet bilaterally. His arms are spared. He has chronic low back pain and some radicular symptoms into the lower extremities at times. Overall, his exam is consistent with a myopathy and neuropathy. I suspect excessive, chronic alcohol use is the origin. He is malnourished with electrolyte abnormalities and has a 40 pound weight loss history over the last 12 months. He has hepatic abnormalities and abdominal pain, likely from alcohol as well. Recommendations: 1. Discontinue all alcohol usage ( 0 alcohol) 2. focus on proper nutrition and B vitamins. A thiamine level is pending. 3. Physical therapy for his legs. increasing activity as able. 4. I may consider EMG and nerve conduction studies as an outpatient if he is not improving. 5. In lieu of his low back pain and radicular symptoms obtain an MRI of the lumbar spine without contrast. Overall, I spent a total of 60 minutes with this case including review of records, direct evaluation the patient at bedside, and discussion of the case with the patient and RN at bedside and Dr. George, including differential diagnosis and treatment options. History of Present Illness Reason for Consultation: Patient is a 29-year-old, who I was asked to see the request of Dr. George, for neurologic consultation regarding weakness. Requesting Physician: Dr. George Attending Physician: Isidro George History of Present Illness patient has a longstanding history alcohol use since his teen years. Over the last 5 years he has been drinking on average 3-4 drinks of bourbon per night on week nights and 6 (or more) drinks of bourbon on the weekends. He goes through greater than 1/5 of bourbon per week. He will drink till he is "buzzed" but does not get " drunk". He occasionally will get shaky if he does not drink this is rare. His last alcohol related blackout was "In college". The longest he has gone without drinking was approximately 1 week this was 6-12 months ago. Patient has a history of hypertension. patient has a history of low back pain for approximately 7-8 years. He had physical therapy in 2013 for low back pain which helped. He has been getting intermittent low back pain since but does not have any obvious radicular pain on a regular basis ( rarely shooting pain down the back of his right or left leg). He 1st noticed weakness in the legs and easy fatigability in the legs starting in the spring of 2019. This was worse in the summer when he tried to play golf and has continued throughout the fall and this winter. He does not really have pain in his legs although his thighs can ache at times. He has achiness in his thighs has been more recent and will come and go. The more he is on his feet more weak and achy his thighs and upper legs. He denies lack of feeling in his feet or legs but does feel burning in his feet and warmth at times in his feet. This has been over the last few months. His balance has been off and he can f all ( going up stairs or in the shower) he has no incontinence of urine. He has no upper extremity pain, weakness, or numbness, cervical spine pain, vision issues, speech problems or mentation problems. Came to the emergency room with abdominal pain and elevated liver enzymes on May 26. He had a sodium of 130, potassium 3.0 and magnesium 1.6. TSH, B12, CK, and sed rate were unremarkable. He has mild anemia and markedly elevated liver tests. He is followed by Dr. Barrett. Today, his electrolytes are back to normal. B1 and thiamin are pending. Allergies Allergy/AdvReac Type Severity Reaction Status Date / Time No Known Allergies Allergy Unverified 05/26/20 15:50 Home Medications Medication Instructions Recorded Confirmed Type escitalopram oxalate 20 mg PO DAILY 05/26/20 05/26/20 History lisinopril 20 mg PO DAILY 05/26/20 05/26/20 History nitrofurantoin monohyd/m-cryst 100 mg PO BID 05/26/20 05/26/20 History omeprazole 40 mg PO DAILY 05/26/20 05/26/20 History ondansetron HCl 4 mg PO Q6H PRN 05/26/20 05/26/20 History potassium chloride 20 meq PO BID 05/26/20 05/26/20 History Patient History Medical History (Updated 05/28/20 @ 09:39 by Alexis Gregorio MD) GERD (gastroesophageal reflux disease) Hepatic steatosis Surgical History S/P inguinal hernia repair Family History Mother GI problem Father , age 54 of an [place] Myocardial infarction Social History Smoking Status: Light tobacco smoker Second Hand Exposure: No; Do You Dip or Chew Tobacco: No; Tobacco Cessation Education Requested by Patient: No Hx Alcohol Use: Yes Alcohol type: hard liquor Alcohol Intake Frequency Comment: 4-6 drinks per day Hx Substance Use: No Preferred Language: Slovenian Communication Ability: Effective Meatman Required: No Beliefs That Will Affect Care: None Current Living Situation: Parent Current Living Situation Comment: Currently staying with Mother in [place], [place]. 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 Review of Systems Constitutional: + fatigue, + weakness, + anorexia and + weight loss; no fever Eyes: no diplopia, no eye pain and no worsening vision Ear, Nose, Mouth, Throat: no ear pain, no tinnitus, no hearing loss, no dizziness, no hoarseness and no dysphagia Respiratory: no cough and no dyspnea Cardiovascular: no chest pain, no palpitations and no lightheadedness Gastrointestinal: + abdominal pain; no nausea and no vomiting Genitourinary: no dysuria and no urinary incontinence Musculoskeletal: + back pain; no neck pain, no radicular pain, no joint pain and no myalgia Integumentary: no rash and no lesions Neurologic: + gait abnormality, + localized weakness and + numbness; no generalized weakness, no tingling, no tremor(s), no abnormal movements, no headache(s), no abnormal speech, no confusion and no memory loss Psychiatric: no depression, no irritability, no anxiety, no difficulty concentrating, no confusion and no hallucinations Endocrine: no fatigue and no flushing Hematologic / Lymphatic: no easy bleeding and no easy bruising Allergy / Immunological: no urticaria and no problem reported Exam (Neuro) Physical Exam: The patient is right-handed. The patient is awake, alert, and attentive. Speech is normal without any aphasia or dysarthria. he can name objects, repeat phrases, and has normal spontaneous speech. Mentation and thought processes are intact, with orientation to person, place and time, and normal fund of knowledge. Attention and concentration are normal. Mood and affect are normal and appropriate. General appearance and grooming are normal. Short and long-term memory are intact. Pupils are 4 mm bilaterally and reactive to light. Extraocular eye muscles are i ntact without nystagmus. Visual acuity and visual hawk seem normal grossly to confrontation. There are no deficits to sensation in the face in all 3 distributions of the fifth cranial nerve bilaterally. Corneal reflexes are positive bilaterally. Facial strength and symmetry was normal bilaterally. Hearing seems normal to whisper and finger rub bilaterally. Palate moves well without asymmetry. There is normal sternocleidomastoid and trapezius (shoulder shrug) strength bilaterally. Tongue is midline with good strength bilaterally. Neck has a full range of motion without discomfort. There are no cervical bruits bilaterally. There are no cranial or ocular bruits. Heart is without murmur. There is a regular rhythm and rate. Cervical, thoracic, and lumbar spine are nontender to palpation. Gait is narrow based but he limps favoring each leg and is very cautious. Turns are slow. Stance sitting up in bed is normal. With outstretched arms there is no drift. There are no resting, postural, or action tremors. There is no ataxia with finger to nose testing. There is good facility in the hands. No other abnormal involuntary movements are noted. Motor strength is 5/5 diffusely in the arms bilaterally including deltoids, biceps, triceps, brachioradialis, wrist flexors and extensors, filling machine set up mechanic, and intrinsic hand muscles. Motor strength is 4+/5 in the hip flexors and hamstrings and 4/5 in the quadriceps muscles bilaterally. gastrocnemius, Tibialis anterior, tibialis posterior, and Peroneii muscles are 5/5 bilaterally. Toe extensors are normal and there is good bulk in the extensor digitorum brevis muscles bilaterally. The limbs have good tone without rigidity or spasticity. There is no atrophy noted in the muscles. Muscle bulk is normal, there is no tenderness to palpation, no myotonia to percussion, and no fasciculations seen. Sensory examination reveals no significant stocking deficit to pin in the feet bilaterally however, there is moderate vibratory sense loss in the feet bilaterally. Position sense testing is spared. Hands are spared. Reflexes are 2/4 in the biceps, triceps, and brachioradialis tendons bilaterally. Quadriceps and Achilles tendon reflexes are absent bilaterally. There is no clonus bilaterally. Toes are downgoing with plantar stimulation bilaterally. Peripheral pulses are present and of normal quality distally in all 4 limbs. There is no peripheral edema noted in the limbs. Results & Data ([facility]) Vital Signs (Past 12 Hours) Vital Signs Temp Pulse Resp BP BP Pulse Ox 05/28/20 07:24 36.8 C 98 H 16 128/84 97 05/27/20 22:38 37.0 C 110 H 15 120/78 100 PG Care Time/CCT Total # of Minutes Spent Total Time Spent with Patient: Total time spent is greater than 50% in coordination of care (as documented) at patient's floor/unit and/or counseling patient: Coding Level of Care Code 85662 Inpt Consult Level 5 Diagnoses Proximal muscle weakness M62.81 Dysesthesia R20.8 Low back pain M54.5 Alcohol use disorder Elevated LFTs R79.89 Abdominal pain R10.9 Time Spent (min) 60
[2020-05-28] MEDS: ESCITALOPRAM OXALATE 20 MG TAB PO SCH (09:28)
[2020-05-28] MEDS: PANTOprazole 40 MG TAB PO SCH ×2 (09:28→20:41)
[2020-05-28] MEDS: FOLIC ACID 1 MG in SYRINGE 9.8 ML IV SCH (09:29)
[2020-05-28] MEDS: THIAMINE HCL 200 MG in SODIUM CHLORIDE 0.9% 50 ML IV SCH ×2 (09:38→20:42)
[2020-05-28] MEDS: ENOXAPARIN INJ 40 MG/0.4 ML SYR SQ SCH (09:39)
[2020-05-28] MEDS: POT PHOSPHATE MONOBASIC W/ SOD TAB PO SCH ×3 (13:07→20:41)
--- NOTE | 2020-05-28 14:52 | Magnetic Resonance Report ---
MR lumbar spine wo con CLINICAL HISTORY: b/l leg weakness and paresthesias TECHNIQUE: Sagittal and axial T1, T2 and STIR images were obtained. COMPARISON STUDY: No previous studies for comparison. OBSERVATIONS: The vertebral bodies and posterior elements appear intact. There is no abnormal bony signal present t o suggest a marrow replacement process. L1-2: No disc protrusions or extrusions. No evidence of spinal canal or neural foraminal compromise. L2-3: There is a tiny right paracentral disc protrusion. There is no spinal or foraminal stenosis L3-4: There is a small broad-based right paracentral disc protrusion. There is mild flattening of the thecal sac. There is no evidence of high-grade spinal stenosis. There is no significant foraminal na rrowing L4-5: There is an annular fissure and small central disc protrusion. There is mild deformity of theca l sac. There is no evidence for high-grade spinal stenosis. There is no significant foraminal stenosi s. L5-S1: There is an annular fissure and small central disc protrusion. There is minimal deformity ante rior thecal sac. There is no evidence of high-grade spinal stenosis. There is no evidence of foramina l narrowing. The conus medullaris and cauda equina appear normal. IMPRESSION: 1. Multilevel spondylytic changes with multilevel disc protrusions. No evidence of high-grade spinal stenosis. No evidence of significant foraminal narrowing. ACT 112: Negative or not required by law. Electronically signed by: Darryn Christopher M.D. 05/28/2020 2:51 PM
[2020-05-28] MEDS: GABAPENTIN 100 MG CAP PO SCH ×2 (16:46→20:41)
--- NOTE | 2020-05-28 19:55 | Hospitalist Progress Note ---
Date of Service May 28, 2020 Assessment & Plan (1) Nausea & vomiting: Chronic, with associated weight loss. Gastritis? esophagitis? other? Resolved with supportive care, PPI twice daily, alcohol cessation. GI consult appreciated. EGD on Friday. MRCP/RUQ u/s results reviewed - no evidence cholecystitis or choledocholithiasis. No pancreatitis on labs or imaging. Cortisol level wnl. Tolerating his diet here. (2) Acute hyponatremia: Improved/resolved Na 138 today can stop fluids (3) Hypokalemia: 2nd to poor oral intake, alcohol abuse, etc. Repleted & resolved. (4) GERD (gastroesophageal reflux disease): Continue pantoprazole 40mg PO BID EGD on Friday diet as tolerated. (5) Hepatic steatosis: Fatty liver / alcoholic liver disease. Abnormal LFTs - uncertain baseline -- uncertain if acute or chronic or combination. Trend daily LFTs - thus far no change in LFTs. Needs alcohol cessation/100% abstinence. Counseled numerous times by various providers since admission. He voices understanding. (6) Elevated LFTs: 2nd to alcohol use. Uncertain how acute vs chronic; daily LFTs. LFTs largely unchanged since admission. Hep A,B,C negative. INR intact. Platelets ok. GI consult appreciated. Imaging results all noted. Ferritin high, but trans-sat wnl. Suspect ferritin is high from chronic alcohol but hemochromatosis DNA sent as precautionary measure. (7) Alcohol use disorder: Encouraged abstinence. We talked about "AA" today. He is going to pursue services in [facility] after discharge. (8) Ambulatory dysfunction: Uncertain cause but seems to have proximal muscle weakness in hip region. 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 Other myositis ruled out- normal CPK, normal sed rate, etc. Aldolase pending. B12 wnl. B1 level pending -- in meantime, thiamine 200mg BID. Lyme negative. L-spine with DJD/herniated discs but no spinal stenosis or foraminal narrowing. PT, OT evals. (9) Prolonged QT interval: Likely 2nd to low K and low mag. Repleted both. Will need repeat EKG in the am tomorrow. (10) Hypomagnesemia: Repleted and resolved (11) Proximal muscle weakness: see above in "ambulatory dysfunction" (12) DVT prophylaxis: lovenox 40mg daily mother extensively updated at bedside once again today appreciate consults by Dr Barrett and Dr Gregorio Admission and Anticipated Discharge Date Admission Date: May 27, 2020 Subjective patient feels much better today no GI intolerance with eating no abdominal pain no vomiting still with burning sensation in feet and ongoing weakness of legs but largely unchanged MRI l-spine obtained - numerous small herniated discs but no spinal stenosis or foraminal stenosis patient has NO etoh withdrawal symptoms no shakes, no anxiety, etc. Review of Systems Constitutional: + fatigue; no fever and no anorexia Respiratory: no dyspnea Cardiovascular: no chest pain Gastrointestinal: no abdominal pain, no nausea and no vomiting Physical Exam Constitutional: no acute distress and no altered mental status Eyes: + scleral abnormality (Icterus b/l ) and EOM intact bilaterally; no nystagmus ENMT: external ear and nose normal, oropharynx normal Respiratory: normal respiratory effort, lungs clear to auscultation Cardiovascular: Rate/Rhythm: regular rate and regular rhythm Heart Sounds: normal S1 and normal S2; no murmur Vessels: posterior tibial pulses present and dorsalis pedis pulses present; no JVD Extremities: + edema (Trace b/l feet) Gastrointestinal (Abdomen): Inspection/Auscultation: normal bowel sounds; abdomen not distended Percussion/Palpation: abdomen soft and + hepatomegaly; abdomen nontender and no splenomegaly Musculoskeletal: Extremities: + muscle atrophy (b/l thigh muscles anteriorly ); no clubbing Psychiatric: A+Ox3, euthymic affect Results & Data Results & Data ([facility]) Vital Signs (Past 12 Hours) Vital Signs Temp Pulse Resp BP Pulse Ox 05/28/20 15:38 36.5 C 92 H 16 141/88 H 97 Laboratory Results Laboratory Results - last 24 hr 05/26/20 05/28/20 05/28/20 18:53 07:06 07:06 WBC RBC Hgb Hct MCV MCH MCHC RDW Std Deviation RDW Coeff of Donal Plt Count MPV Immature Gran % (Auto) Neut % (Auto) Lymph % (Auto) Clark % (Auto) Eos % (Auto) Baso % (Auto) Neut # (Auto) Lymph # (Auto) Clark # (Auto) Eos # (Auto) Baso # (Auto) Immature Gran # (Auto) ESR 26 H Sodium Potassium Chloride Carbon Dioxide Anion Gap BUN Creatinine Est Cr Clr Drug Dosing Est GFR ( Amer) Est GFR (Non-Af Amer) BUN/Creatinine Ratio Glucose Calcium Phosphorus Magnesium Total Bilirubin AST ALT Alkaline Phosphatase Total Protein Albumin Globulin Albumin/Globulin Ratio Aldolase Cortisol AM Sample 11.30 Lyme Disease IgG Ab Lyme Disease IgM Ab Hepatitis A IgM Ab NON-REACTIVE Hep B Core IgM Ab NON-REACTIVE Hemochromatosis DNA 05/28/20 05/28/20 05/28/20 07:06 07:06 07:06 WBC 4.11 L RBC 3.07 L Hgb 10.5 L Hct 31.0 L MCV 101.0 H MCH 34.2 H MCHC 33.9 RDW Std Deviation 60.5 H RDW Coeff of Donal 16.6 H Plt Count 200 MPV 8.8 Immature Gran % (Auto) 1.0 Neut % (Auto) 58.9 Lymph % (Auto) 26.5 Clark % (Auto) 11.9 Eos % (Auto) 1.2 Baso % (Auto) 0.5 Neut # (Auto) 2.42 Lymph # (Auto) 1.09 L Clark # (Auto) 0.49 Eos # (Auto) 0.05 Baso # (Auto) 0.02 Immature Gran # (Auto) 0.04 H ESR Sodium Potassium Chloride Carbon Dioxide Anion Gap BUN Creatinine Est Cr Clr Drug Dosing Est GFR ( Amer) Est GFR (Non-Af Amer) BUN/Creatinine Ratio Glucose Calcium Phosphorus Magnesium Total Bilirubin AST ALT Alkaline Phosphatase Total Protein Albumin Globulin Albumin/Globulin Ratio Aldolase Pending Cortisol AM Sample Lyme Disease IgG Ab Negative Lyme Disease IgM Ab Negative Hepatitis A IgM Ab Hep B Core IgM Ab Hemochromatosis DNA 05/28/20 05/28/20 07:06 07:06 WBC RBC Hgb Hct MCV MCH MCHC RDW Std Deviation RDW Coeff of Donal Plt Count MPV Immature Gran % (Auto) Neut % (Auto) Lymph % (Auto) Clark % (Auto) Eos % (Auto) Baso % (Auto) Neut # (Auto) Lymph # (Auto) Clark # (Auto) Eos # (Auto) Baso # (Auto) Immature Gran # (Auto) ESR Sodium 138 Potassium 3.7 Chloride 105 Carbon Dioxide 26 Anion Gap 7.0 BUN 3 L Creatinine 0.46 L Est Cr Clr Drug Dosing 270.5 Est GFR ( Amer) > 150.0 Est GFR (Non-Af Amer) 149.4 BUN/Creatinine Ratio 5.4 L Glucose 88 Calcium 8.7 Phosphorus 2.1 L Magnesium 1.9 Total Bilirubin 1.8 H AST 235 H ALT 188 H Alkaline Phosphatase 281 H Total Protein 6.2 L Albumin 2.9 L Globulin 3.3 Albumin/Globulin Ratio 0.9 Aldolase Cortisol AM Sample Lyme Disease IgG Ab Lyme Disease IgM Ab Hepatitis A IgM Ab Hep B Core IgM Ab Hemochromatosis DNA Pending PG Care Time/CCT Total # of Minutes Spent Total Time Spent with Patient: Total time spent is greater than 50% in coordination of care (as documented) at patient's floor/unit and/or counseling patient: Coding Level of Care Code 33581 Subseq Hosp Care Lvl 3 Diagnoses Nausea & vomiting R11.2 Vomiting Intractability: intractable Vomiting type: unspecified Acute hyponatremia E87.1 Hypokalemia E87.6 GERD (gastroesophageal reflux disease) K21.9 Esophagitis presence: esophagitis presence not specified Hepatic steatosis K76.0 Elevated LFTs R79.89 Alcohol use disorder Ambulatory dysfunction R26.2 Prolonged QT interval R94.31 Hypomagnesemia E83.42 Proximal muscle weakness M62.81 DVT prophylaxis Z29.9 (1) GERD (gastroesophageal reflux disease) Esophagitis presence: esophagitis presence not specified Qualified Code(s): K21.9 - Gastro-esophageal reflux disease without esophagitis (2) Nausea & vomiting Vomiting Intractability: intractable Vomiting type: unspecified Qualified Code(s): R11.2 - Nausea with vomiting, unspecified
[2020-05-29] MEDS: FOLIC ACID 1 MG in SYRINGE 9.8 ML IV SCH (08:07)
[2020-05-29] MEDS: ENOXAPARIN INJ 40 MG/0.4 ML SYR SQ SCH (08:07)
[2020-05-29] MEDS: GABAPENTIN 100 MG CAP PO SCH ×2 (08:07→20:02)
[2020-05-29] MEDS: ESCITALOPRAM OXALATE 20 MG TAB PO SCH (08:07)
[2020-05-29] MEDS: PANTOprazole 40 MG TAB PO SCH ×2 (08:07→20:02)
[2020-05-29] MEDS: THIAMINE HCL 200 MG in SODIUM CHLORIDE 0.9% 50 ML IV SCH ×2 (08:09→20:03)
[2020-05-29 08:16] LABS: Alanine Aminotransferase 198 U/L (12-78); Aspartate Aminotransferase 214 U/L (15-37); BUN Creatinine Ratio 9.5 (10-20); Blood Urea Nitrogen 5 mg/dl (7-18); Calcium 9.2 mg/dl (8.5-10.1); Carbon Dioxide 28 mmol/L (21-32); Chloride 104 mmol/L (98-107); Creatinine Clr Calc Pharmacy 248.9 ml/min; Est GFR (African American) > 150.0; Est GFR (Non-African American) 144.4; Glucose 76 mg/dl (70-99); Potassium 3.8 mmol/L (3.5-5.1); Sodium 138 mmol/L (136-145)
[2020-05-29 08:18] LABS: Albumin Globulin Ratio 0.9 (0.9-2); Alkaline Phosphatase 269 U/L (45-117); Bilirubin,Total 1.8 mg/dl (0.2-1); Globulin 3.3 gm/dl (2.5-4.0); Total Protein 6.3 gm/dl (6.4-8.2)
[2020-05-29] MEDS: POT PHOSPHATE MONOBASIC W/ SOD TAB PO SCH ×4 (08:43→20:02)
--- NOTE | 2020-05-29 09:42 | History & Physical Bridge Note ---
Date of Service May 29, 2020 History & Physical Bridge Note I have examined the patient, reviewed the History & Physical and in the interval since the performance of the History & Physical I have noted the following changes of clinical significance: no changes noted Patient has been NPO since prior to midnight. He denies further abdominal pain & nausea. He denies further issues at present. Hereditary hemachromatosis labs pending. Keep NPO and proceed with EGD today. Supervising Physician Co-Signing Physician Notes Agree with ASAEL Hawthorne as above Abd: Soft, Tender, ND, +BS Continue current therapy Proceed with EGD.
--- NOTE | 2020-05-29 14:56 | Anesthesiology Consultation ---
Date of Service May 29, 2020 Assessment & Plan (1) Encounter for pre-operative examination: History Surgery Operation Date: 05/29/20 16:00 Proposed Procedures p Esophagogastroduodenoscopy Dr Arnold Espinal Case, DO Height/Weight Height: 6 ft 2 in Weight: 98 kg Allergies Allergy/AdvReac Type Severity Reaction Status Date / Time No Known Allergies Allergy Unverified 05/26/20 15:50 Medications Home Medications Medication Instructions Recorded Confirmed Last Taken escitalopram oxalate 20 mg PO DAILY 05/26/20 05/26/20 05/26/20 lisinopril 20 mg PO DAILY 05/26/20 05/26/20 05/26/20 nitrofurantoin monohyd/m-cryst 100 mg PO BID 05/26/20 05/26/20 Unknown omeprazole 40 mg PO DAILY 05/26/20 05/26/20 Unknown ondansetron HCl 4 mg PO Q6H PRN 05/26/20 05/26/20 Unknown potassium chloride 20 meq PO BID 05/26/20 05/26/20 Unknown Active Medications Generic Name Dose Route Start Last Admin Trade Name Freq PRN Reason Stop Dose Admin Acetaminophen 1,000 mg 05/28/20 04:42 05/28/20 23:50 Acetaminophen 500 Mg Tab PO 06/27/20 04:41 1,000 mg Q6H PRN Administration Pain or Fever Enoxaparin Sodium 40 mg 05/28/20 09:00 05/29/20 08:07 Enoxaparin Inj 40 Mg/0.4 Ml Syr SQ 06/27/20 08:59 40 mg QAM DOLORES Administration Escitalopram Oxalate 20 mg 05/27/20 09:00 05/29/20 08:07 Escitalopram Oxalate 20 Mg Tab PO 06/26/20 08:59 20 mg DAILY DOLORES Administration Gabapentin 100 mg 05/28/20 15:30 05/29/20 08:07 Gabapentin 100 Mg Cap PO 06/27/20 15:29 100 mg BID DOLORES Administration Promethazine HCl 12.5 mg/ 50.5 mls @ 202 mls/hr 05/26/20 23:18 05/27/20 12:02 Sodium Chloride IV 06/25/20 23:17 Infused Q6H PRN Infusion Nausea And Vomiting Folic Acid 1 mg/ Syringe 10 mls @ 5 mls/min 05/28/20 09:00 05/29/20 08:07 IV 06/27/20 08:59 5 mls/min QAM DOLORES Administration Thiamine HCl 200 mg/ Sodium 52 mls @ 208 mls/hr 05/27/20 21:00 05/29/20 08:37 Chloride IV 06/26/20 20:59 Infused BID DOLORES Infusion Pantoprazole Sodium 40 mg 05/27/20 09:00 05/29/20 08:07 Pantoprazole 40 Mg Tab PO 06/26/20 08:59 40 mg BID DOLORES Administration Potassium Phosphate 1 tab 05/28/20 13:00 05/29/20 12:07 Pot Phosphate Monobasic W/ Sod Tab PO 06/27/20 12:59 1 tab QID DOLORES Administration NPO Date Last Intake of Fluids: 05/28/20 Time Last Intake of Fluids: 23:59 Date Last Intake of Solids: 05/28/20 Time Last Intake of Solids: 23:59 Past Medical History Medical History GERD (gastroesophageal reflux disease) Hepatic steatosis Past Family History Family History Mother GI problem Father , age 54 of an [place] Myocardial infarction Past Surgical History Surgical History S/P inguinal hernia repair Social History Smoking Status: Light tobacco smoker tobacco type: cigars Do You Dip or Chew Tobacco: No Hx Alcohol Use: Yes Alcohol type: hard liquor alcohol intake frequency: a few times a month Alcohol Intake Frequency Comment: [place] and Melissa Shavon. Hx Substance Use: No Physical Exam Vital Signs Last Vital Signs Temp 36.7 C 05/29/20 07:22 Pulse 98 H 05/29/20 07:22 Resp 16 05/29/20 07:22 BP 146/97 H 05/29/20 07:22 Pulse Ox 95 05/29/20 07:22 Testing Laboratory Results 05/28/20 07:06 05/29/20 07:24 PT 10.9 Seconds (9.0-12.0) 05/26/20 15:01 INR 1.1 (0.9-1.1) 05/26/20 15:01 Urine Color Dark Yellow 05/26/20 22:40 Urine Appearance Clear (Clear) 05/26/20 22:40 Urine pH 7.0 (4.5-7.5) 05/26/20 22:40 Ur Specific [place] 1.018 (1.000-1.030) 05/26/20 22:40 Urine Protein Negative (Negative) 05/26/20 22:40 Urine Glucose (UA) Negative (Negative) 05/26/20 22:40 Urine Ketones 3+ (Negative) H 05/26/20 22:40 Urine Nitrite Positive (Negative) A 05/26/20 22:40 Ur Leukocyte Esterase Negative (Negative) 05/26/20 22:40 Urine WBC (Auto) 1-5 /hpf (0-5) 05/26/20 22:40 Urine RBC (Auto) 0-4 /hpf (0-4) 05/26/20 22:40 U Hyaline Cast (Auto) 1-5 /lpf (0-5) 05/26/20 22:40 U Epithel Cells (Auto) 5-10 /lpf (0-5) H 05/26/20 22:40 Urine Bacteria (Auto) Negative (Negative) 05/26/20 22:40
[2020-05-29] MEDS ORDERED: fentaNYL citrate 100 MCG/2 ML VIAL ONE (15:22)
--- NOTE | 2020-05-29 15:33 | Anesthesiology Consultation ---
Date of Service May 29, 2020 Covid 19 negative on 05/26/20. Assessment & Plan (1) Encounter for pre-operative examination: Chart Review Chart Review: Acceptable Risk for Surgery and Patient NOT seen in Pre Admission Testing Consults Requested none History Surgery Operation Date: 05/29/20 16:00 Proposed Procedures p Esophagogastroduodenoscopy Dr Barrett - Mauri Espinal Case, DO Height/Weight Height: 6 ft 2 in Weight: 98 kg Allergies Allergy/AdvReac Type Severity Reaction Status Date / Time No Known Allergies Allergy Verified 05/29/20 15:29 Medications Home Medications Medication Instructions Recorded Confirmed Last Taken escitalopram oxalate 20 mg PO DAILY 05/26/20 05/26/20 05/26/20 lisinopril 20 mg PO DAILY 05/26/20 05/26/20 05/26/20 nitrofurantoin monohyd/m-cryst 100 mg PO BID 05/26/20 05/26/20 Unknown omeprazole 40 mg PO DAILY 05/26/20 05/26/20 Unknown ondansetron HCl 4 mg PO Q6H PRN 05/26/20 05/26/20 Unknown potassium chloride 20 meq PO BID 05/26/20 05/26/20 Unknown Active Medications Generic Name Dose Route Start Last Admin Trade Name Freq PRN Reason Stop Dose Admin Acetaminophen 1,000 mg 05/28/20 04:42 05/28/20 23:50 Acetaminophen 500 Mg Tab PO 06/27/20 04:41 1,000 mg Q6H PRN Administration Pain or Fever Enoxaparin Sodium 40 mg 05/28/20 09:00 05/29/20 08:07 Enoxaparin Inj 40 Mg/0.4 Ml Syr SQ 06/27/20 08:59 40 mg QAM DOLORES Administration Escitalopram Oxalate 20 mg 05/27/20 09:00 05/29/20 08:07 Escitalopram Oxalate 20 Mg Tab PO 06/26/20 08:59 20 mg DAILY DOLORES Administration Gabapentin 100 mg 05/28/20 15:30 05/29/20 08:07 Gabapentin 100 Mg Cap PO 06/27/20 15:29 100 mg BID DOLORES Administration Promethazine HCl 12.5 mg/ 50.5 mls @ 202 mls/hr 05/26/20 23:18 05/27/20 12:02 Sodium Chloride IV 06/25/20 23:17 Infused Q6H PRN Infusion Nausea And Vomiting Folic Acid 1 mg/ Syringe 10 mls @ 5 mls/min 05/28/20 09:00 05/29/20 08:07 IV 06/27/20 08:59 5 mls/min QAM DOLORES Administration Thiamine HCl 200 mg/ Sodium 52 mls @ 208 mls/hr 05/27/20 21:00 05/29/20 08:37 Chloride IV 06/26/20 20:59 Infused BID DOLORES Infusion Pantoprazole Sodium 40 mg 05/27/20 09:00 05/29/20 08:07 Pantoprazole 40 Mg Tab PO 06/26/20 08:59 40 mg BID DOLORES Administration Potassium Phosphate 1 tab 05/28/20 13:00 05/29/20 12:07 Pot Phosphate Monobasic W/ Sod Tab PO 06/27/20 12:59 1 tab QID DOLORES Administration NPO Date Last Intake of Fluids: 05/29/20 Time Last Intake of Fluids: 10:00 Last Intake of Fluids Comment: sip with meds Date Last Intake of Solids: 05/28/20 Time Last Intake of Solids: 18:00 Past Medical History Medical History Alcoholism Anemia Depression GERD (gastroesophageal reflux disease) Hepatic steatosis Hypertension Past Family History Family History Mother GI problem Father , age 54 of an [place] Myocardial infarction Past Surgical History Surgical History S/P inguinal hernia repair Social History Smoking Status: Light tobacco smoker tobacco type: cigars Do You Dip or Chew Tobacco: No Hx Alcohol Use: Yes Alcohol type: hard liquor alcohol intake frequency: a few times a month Alcohol Intake Frequency Comment: [place] and Melissa Shavon. Hx Substance Use: No Physical Exam Vital Signs Last Vital Signs Temp 36.8 C 05/29/20 15:28 Pulse 99 H 05/29/20 15:28 Resp 18 05/29/20 15:28 BP 156/103 H 05/29/20 15:28 Pulse Ox 90 05/29/20 15:28 Testing Laboratory Results 05/28/20 07:06 05/29/20 07:24 PT 10.9 Seconds (9.0-12.0) 05/26/20 15:01 INR 1.1 (0.9-1.1) 05/26/20 15:01 Urine Color Dark Yellow 05/26/20 22:40 Urine Appearance Clear (Clear) 05/26/20 22:40 Urine pH 7.0 (4.5-7.5) 05/26/20 22:40 Ur Specific [place] 1.018 (1.000-1.030) 05/26/20 22:40 Urine Protein Negative (Negative) 05/26/20 22:40 Urine Glucose (UA) Negative (Negative) 05/26/20 22:40 Urine Ketones 3+ (Negative) H 05/26/20 22:40 Urine Nitrite Positive (Negative) A 05/26/20 22:40 Ur Leukocyte Esterase Negative (Negative) 05/26/20 22:40 Urine WBC (Auto) 1-5 /hpf (0-5) 05/26/20 22:40 Urine RBC (Auto) 0-4 /hpf (0-4) 05/26/20 22:40 U Hyaline Cast (Auto) 1-5 /lpf (0-5) 05/26/20 22:40 U Epithel Cells (Auto) 5-10 /lpf (0-5) H 05/26/20 22:40 Urine Bacteria (Auto) Negative (Negative) 05/26/20 22:40
--- NOTE | 2020-05-29 16:07 | GI REPORT ---
Patient Name: Lex Cao Procedure Date: 05/29/2020 3:47 PM Date of : 1990 Admit Type: Inpatient Age: 29 Gender: Male Attending MD: Mauri Barrett DO Procedure: Upper GI endoscopy Providers: Mauri Barrett DO Referring MD: Referred Self Indications: Epigastric abdominal pain Medicines: Monitored Anesthesia Care Complications: No immediate complications. Estimated Blood Loss: Estimated blood loss: none. Procedure: Pre-Anesthesia Assessment: - Prior to the procedure, a History and Physical was performed, and patient medications and allergies were reviewed. The patient's tolerance of previous anesthesia was also reviewed. The risks and benefits of the procedure and the sedation options and risks were discussed with the patient. All questions were answered, and informed consent was obtained. Prior Anticoagulants: The patient has taken no previous anticoagulant or antiplatelet agents. ASA Grade Assessment: II - A patient with mild systemic disease. After reviewing the risks and benefits, the patient was deemed in satisfactory condition to undergo the procedure. After obtaining informed consent, the endoscope was passed under direct vision. Throughout the procedure, the patient's blood pressure, pulse, and oxygen saturations were monitored continuously. The Endoscope was introduced through the mouth, and advanced to the second part of duodenum. The upper GI endoscopy was accomplished without difficulty. The patient tolerated the procedure well. Findings: The examined esophagus was normal. Localized moderate inflammation characterized by erythema was found in the gastric antrum. Biopsies were taken with a cold forceps for histology. The examined duodenum was normal. Impression: - Normal esophagus. - Gastritis. Biopsied. - Normal examined duodenum. Recommendation: - Return patient to hospital [facility] for ongoing care. - Advance diet as tolerated. - Continue present medications. - Await pathology results. Mauri Barrett DO 05/29/2020 4:06:32 PM This report has been signed electronically. Note Initiated On: 05/29/2020 3:47 PM Number of Addenda: 0 I attest to the content of the Intraoperative Record and orders documented therein, exceptions below {[id number]}
--- NOTE | 2020-05-29 16:10 | Electrocardiogram Report ---
Test Reason : Blood Pressure : / mmHG Vent. Rate : 092 BPM Atrial Rate : 092 BPM P-R Int : 150 ms QRS Dur : 086 ms QT Int : 368 ms P-R-T Axes : 006 001 -06 degrees QTc Int : 455 ms Normal sinus rhythm Normal ECG When compared with ECG of 26-MAY-2020 14:49, QT has shortened Confirmed by Beau Begum ([id number]) on 05/29/2020 4:10:24 PM Referred By: REFERRED SELF Confirmed By:Jorden Begum
[2020-05-29] MEDS ORDERED: PROPOFOL IV EMULSION 10 MG/ML 20 ML VIAL IV ONE (16:11)
[2020-05-29] MEDS ORDERED: LIDOCAINE HCL 2% 2 ML VIAL/AMP(20MG/ML) INFIL ONE ×2 (16:11)
--- NOTE | 2020-05-29 16:14 | Anesthesiology Progress Note ---
Date of Service May 29, 2020 Anesthesia Post Procedure Vital Signs Vital Signs: Temp Pulse Resp BP BP Pulse Ox 05/29/20 15:28 36.8 C 99 H 18 156/103 H 90 05/29/20 15:23 36.5 C 98 H 18 148/107 H 96 05/29/20 07:22 36.7 C 98 H 16 146/97 H 95 05/28/20 22:55 36.8 C 99 H 16 148/96 H 99 Pain Intensity Generalized: Pain Intensity: 0 Bilateral Leg: Pain Intensity: 2 Transfer of Care Handoff Completed per policy Notes Mental Status: alert / awake / arousable Patient Amnestic to Procedure: Yes Nausea / Vomiting: adequately controlled Pain: adequately controlled Airway Patency, RR, SpO2: stable & adequate BP & HR: stable & adequate Hydration State: stable & adequate Anesthetic Complications: no major complications apparent and Pt Satisfied with anesthetic care
--- NOTE | 2020-05-29 20:14 | Hospitalist Progress Note ---
Date of Service May 29, 2020 Assessment & Plan (1) Nausea & vomiting: Chronic, with associated weight loss. Gastritis? esophagitis? other? Resolved with supportive care, PPI twice daily, alcohol cessation. GI consult appreciated. EGD on Friday. MRCP/RUQ u/s results reviewed - no evidence cholecystitis or choledocholithiasis. No pancreatitis on labs or imaging. Cortisol level wnl. Tolerating his diet here. 05-29 EGD with gastritis -- biopsied (2) Acute hyponatremia: Improved/resolved Na 138 today can stop fluids (3) Hypokalemia: 2nd to poor oral intake, alcohol abuse, etc. Repleted & resolved. (4) GERD (gastroesophageal reflux disease): Continue pantoprazole 40mg PO BID EGD on Friday diet as tolerated. (5) Hepatic steatosis: Fatty liver / alcoholic liver disease. Abnormal LFTs - uncertain baseline -- uncertain if acute or chronic or combination. Trend daily LFTs - thus far no change in LFTs. Needs alcohol cessation/100% abstinence. Counseled numerous times by various providers since admission. He voices understanding. (6) Elevated LFTs: 2nd to alcohol use. Uncertain how acute vs chronic; daily LFTs. LFTs largely unchanged since admission. Hep A,B,C negative. INR intact. Platelets ok. GI consult appreciated. Imaging results all noted. Ferritin high, but trans-sat wnl. Suspect ferritin is high from chronic alcohol but hemochromatosis DNA sent as precautionary measure. (7) Alcohol use disorder: Encouraged abstinence. We talked about "AA" today. He is going to pursue services in [facility] after discharge. (8) Ambulatory dysfunction: Uncertain cause but seems to have proximal muscle weakness in hip region. 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 Other myositis ruled out- normal CPK, normal sed rate, etc. Aldolase pending. B12 wnl. B1 level pending -- in meantime, thiamine 200mg BID. Lyme negative. L-spine with DJD/herniated discs but no spinal stenosis or foraminal narrowing. PT, OT evals. (9) Prolonged QT interval: Likely 2nd to low K and low mag. Repleted both. Will need repeat EKG in the am tomorrow. (10) Hypomagnesemia: Repleted and resolved (11) Proximal muscle weakness: see above in "ambulatory dysfunction" (12) DVT prophylaxis: lovenox 40mg daily mother extensively updated at bedside once again today appreciate consults by Dr Barrett and Dr Gregorio Admission and Anticipated Discharge Date Admission Date: May 27, 2020 Subjective Patient tolerated diet yesterday. No nausea and vomiting for 24 hours He remains NPO today for EGD Had a BM today No hematochezia Continues to feel gassy Continues to have pain in feet -- feels gabapentin is helping EGD with normal esophagus, gastritis that was biopsied, normal duodenum Review of Systems Constitutional: no fever, no chills, no fatigue, no weakness, no anorexia, no weight loss and no weight gain Ear, Nose, Mouth, Throat: no nasal congestion, no sore throat and no dysphagia Respiratory: no cough and no dyspnea Cardiovascular: no chest pain, no dyspnea on exertion, no orthopnea and no palpitations Gastrointestinal: no abdominal pain, no nausea, no vomiting, no hematemesis, no dysphagia, no constipation, no diarrhea/loose stools, no blood in stools and no melena Genitourinary: no dysuria and no hematuria Musculoskeletal: no back pain, no joint pain, no myalgia and no muscle weakness Integumentary: no rash, no lesions, no skin ulcer, no erythema, no dry skin and no pruritus Neurologic: no falls, no localized weakness, no generalized weakness, no numbness, no paresthesia, no tremor(s) and no headache(s) Psychiatric: no depression, no suicidal ideation, no homicidal ideation and no anxiety Endocrine: no cold intolerance and no heat intolerance Hematologic / Lymphatic: no easy bleeding and no easy bruising Physical Exam Constitutional: well developed and well nourished; no acute distress Eyes: PERRL, conjunctivae normal, anicteric sclerae ENMT: Mouth: oral mucous membranes not dry Respiratory: normal respiratory effort; no respiratory distress and no labored breathing Auscultation: lungs clear to auscultation bilaterally; no crackles, no rales, no rhonchi and no wheezes Cardiovascular: Rate/Rhythm: regular rate and regular rhythm Heart Sounds: no murmur and no cardiac rub Vessels: normal peripheral pulses and radial pulses present; no JVD Extremities: no edema Gastrointestinal (Abdomen): Inspection/Auscultation: abdomen normal to inspection and normal bowel sounds; abdomen not distended Percussion/Palpation: abdomen soft; abdomen nontender, no guarding, abdomen not rigid and no hepatosplenomegaly Musculoskeletal: Head/Neck/Chest: normocephalic and head atraumatic Spine: no cervical spinal tenderness, no cervical muscular tenderness, no thoracic spinal tenderness and no lumbar spinal tenderness Skin: no rashes, warm and dry Neurologic: CN's II-XI intact bilaterally and moves all extremities Motor/Sensory: no tremor and no sensory deficit Psychiatric: Orientation: alert, oriented to person, oriented to place and oriented to time Apperance: appropriately groomed; not disheveled Affect: euthymic affect; no anxious affect and no tearful affect Genitourinary: no Rhodes catheter Results & Data Results & Data ([facility]) Vital Signs (Past 12 Hours) Vital Signs Temp Pulse Resp BP BP Pulse Ox 05/29/20 18:49 36.7 C 103 H 18 145/95 H 96 05/29/20 16:57 36.8 C 93 H 20 151/102 H 98 05/29/20 16:36 104 H 16 138/95 99 05/29/20 16:23 103 H 16 142/100 H 99 05/29/20 16:10 99 H 16 137/94 99 05/29/20 15:28 36.8 C 99 H 18 156/103 H 90 05/29/20 15:23 36.5 C 98 H 18 148/107 H 96 PG Care Time/CCT Total # of Minutes Spent Total Time Spent with Patient: Total time spent is greater than 50% in coordination of care (as documented) at patient's floor/unit and/or counseling patient: Coding Level of Care Code 84190 Subseq Hosp Care Lvl 2 Diagnoses Nausea & vomiting R11.2 Vomiting Intractability: intractable Vomiting type: unspecified Acute hyponatremia E87.1 Hypokalemia E87.6 GERD (gastroesophageal reflux disease) K21.9 Esophagitis presence: esophagitis presence not specified Hepatic steatosis K76.0 Elevated LFTs R79.89 Alcohol use disorder Ambulatory dysfunction R26.2 Prolonged QT interval R94.31 Hypomagnesemia E83.42 Proximal muscle weakness M62.81 DVT prophylaxis Z29.9 (1) Nausea & vomiting Vomiting Intractability: intractable Vomiting type: unspecified Qualified Code(s): R11.2 - Nausea with vomiting, unspecified (2) GERD (gastroesophageal reflux disease) Esophagitis presence: esophagitis presence not specified Qualified Code(s): K21.9 - Gastro-esophageal reflux disease without esophagitis
[2020-05-29] MEDS: ACETAMINOPHEN 500 MG TAB PO PRN (22:33)
[2020-05-29] MEDS ORDERED: EUCERIN CR 120 GM JAR EXT PRN (23:37)
[2020-05-30 07:14] LABS: Hematocrit (blood only) 31.6 % (42-52); Hemoglobin 10.8 g/dL (14.0-18.0); Mean Corpuscular Hemoglobin 34.3 pg (25-34); Mean Corpuscular Hgb Conc 34.2 g/dL (32-36); Mean Corpuscular Volume 100.3 fL (80-100); Mean Platelet Volume 8.6 fL (7.4-10.4); Platelet Count 235 K/uL (130-400); RDW Coefficient of Variation 17.3 % (11.5-14.5); RDW Standard Deviation 62.9 fL (36.4-46.3); Red Blood Count 3.15 M/uL (4.7-6.1); White Blood Count 4.57 K/uL (4.8-10.8)
[2020-05-30] MEDS: THIAMINE HCL 200 MG in SODIUM CHLORIDE 0.9% 50 ML IV SCH (07:54)
[2020-05-30] MEDS: FOLIC ACID 1 MG in SYRINGE 9.8 ML IV SCH (07:55)
[2020-05-30] MEDS: POT PHOSPHATE MONOBASIC W/ SOD TAB PO SCH ×3 (07:58→17:02)
[2020-05-30] MEDS: ESCITALOPRAM OXALATE 20 MG TAB PO SCH (07:59)
[2020-05-30] MEDS: PANTOprazole 40 MG TAB PO SCH (07:59)
[2020-05-30] MEDS: GABAPENTIN 100 MG CAP PO SCH (07:59)
[2020-05-30] MEDS: ENOXAPARIN INJ 40 MG/0.4 ML SYR SQ SCH (07:59)
[2020-05-30 08:02] LABS: BUN Creatinine Ratio 8.1 (10-20); Blood Urea Nitrogen 5 mg/dl (7-18); Calcium 9.5 mg/dl (8.5-10.1); Carbon Dioxide 27 mmol/L (21-32); Chloride 101 mmol/L (98-107); Creatinine Clr Calc Pharmacy 214.6 ml/min; Est GFR (African American) > 150.0; Est GFR (Non-African American) 135.9; Glucose 79 mg/dl (70-99); Magnesium 1.8 mg/dl (1.8-2.4); Potassium 3.4 mmol/L (3.5-5.1); Sodium 136 mmol/L (136-145)
[2020-05-30 08:06] LABS: Phosphorus 3.9 mg/dl (2.5-4.9)
[2020-05-30] MEDS ORDERED: lisinopril 20 MG TAB PO SCH (09:00)
[2020-05-30] MEDS ORDERED: GABAPENTIN 100 MG CAP PO SCH (09:00)
[2020-05-30] MEDS ORDERED: GABAPENTIN 300 MG CAP PO SCH (14:00)
--- NOTE | 2020-05-30 16:29 | Discharge Summary ---
Date of Service May 30, 2020 Principal Diagnosis alcoholic liver disease hyponatremia gastritis Discharge Exam Constitutional well developed and well nourished; no acute distress Eyes PERRL, conjunctivae normal, anicteric sclerae ENMT Mouth: oral mucous membranes not dry Respiratory normal respiratory effort; no respiratory distress and no labored breathing Auscultation: lungs clear to auscultation bilaterally; no crackles, no rales, no rhonchi and no wheezes Cardiovascular Rate/Rhythm: regular rate and regular rhythm Heart Sounds: no murmur and no cardiac rub Vessels: normal peripheral pulses and radial pulses present; no JVD Extremities: no edema Gastrointestinal (Abdomen) Inspection/Auscultation: abdomen normal to inspection and normal bowel sounds; abdomen not distended Percussion/Palpation: abdomen soft; abdomen nontender, no guarding, abdomen not rigid and no hepatosplenomegaly Musculoskeletal Head/Neck/Chest: normocephalic and head atraumatic Spine: no cervical spinal tenderness, no cervical muscular tenderness, no thoracic spinal tenderness and no lumbar spinal tenderness Skin no rashes, warm and dry Neurologic CN's II-XI intact bilaterally and moves all extremities Motor/Sensory: no tremor and no sensory deficit Psychiatric Orientation: alert, oriented to person, oriented to place and oriented to time Apperance: appropriately groomed; not disheveled Affect: euthymic affect; no anxious affect and no tearful affect Discharge Data Allergies Allergy/AdvReac Type Severity Reaction Status Date / Time No Known Allergies Allergy Verified 05/29/20 15:29 Consultations 05/26/20 20:09 Consult Gastroenterology Routine 05/27/20 20:46 Consult Neurology Routine Procedures Performed Operation Date: 05/29/20 16:00 Actual Procedures p EGD Biopsy Cytology - Mauri Espinal Case, DO Ordered Studies 05/26/20 16:14 US gallbladder Stat 05/26/20 18:06 MR MRCP Stat 05/28/20 13:25 MR lumbar spine wo con Routine Hospital Course (1) Nausea & vomiting: Chronic, with associated weight loss. Gastritis? esophagitis? other? Resolved with supportive care, PPI twice daily, alcohol cessation. GI consult appreciated. EGD on Friday. MRCP/RUQ u/s results reviewed - no evidence cholecystitis or choledocho lithiasis. No pancreatitis on labs or imaging. Cortisol level wnl. Tolerating his diet here. 3- EGD with gastritis -- biopsied (2) Acute hyponatremia: Improved/resolved Na 138 today can stop fluids (3) Hypokalemia: 2nd to poor oral intake, alcohol abuse, etc. Repleted & resolved. (4) GERD (gastroesophageal reflux disease): Continue pantoprazole 40mg PO BID EGD on Friday diet as tolerated. (5) Hepatic steatosis: Fatty liver / alcoholic liver disease. Abnormal LFTs - uncertain baseline -- uncertain if acute or chronic or combination. Trend daily LFTs - thus far no change in LFTs. Needs alcohol cessation/100% abstinence. Counseled numerous times by various providers since admission. He voices understanding. (6) Elevated LFTs: 2nd to alcohol use. Uncertain how acute vs chronic; daily LFTs. LFTs largely unchanged since admission. Hep A,B,C negative. INR intact. Platelets ok. GI consult appreciated. Imaging results all noted. Ferritin high, but trans-sat wnl. Suspect ferritin is high from chronic alcohol but hemochromatosis DNA sent as precautionary measure. (7) Alcohol use disorder: Encouraged abstinence. We talked about "AA" today. He is going to pursue services in [facility] after discharge. (8) Ambulatory dysfunction: Uncertain cause but seems to have proximal muscle weakness in hip region. 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 Other myositis ruled out- normal CPK, normal sed rate, etc. Aldolase pending. B12 wnl. B1 level pending -- in meantime, thiamine 200mg BID. Lyme negative. L-spine with DJD/herniated discs but no spinal stenosis or foraminal narrowing. PT, OT evals. (9) Prolonged QT interval: Likely 2nd to low K and low mag. Repleted both. Will need repeat EKG in the am tomorrow. (10) Hypomagnesemia: Repleted and resolved (11) Proximal muscle weakness: see above in "ambulatory dysfunction" (12) DVT prophylaxis: lovenox 40mg daily mother extensively updated at bedside once again today appreciate consults by Dr Barrett and Dr Gregorio Total Time Total Time Spent Total Time Spent (In Minutes): 35 Total Time Includes: Examination of the Patient, Discharge Planning, Medication Reconciliation and Communication With Other Providers Discharge Plan Discharge Items Patient Disposition: Home - Self-Care Reason For Visit: ELEVATED LFTS Discharge Diagnosis: alcoholism gastritis hepatic steatosis Activity: Resume your previous activity Non-emergency contact: Primary Care Provider Call non-emergency contact if: you have any medication questions Follow-up/Referrals: Mauri Barrett, [Physician] - (within 2 weeks for follow up gastritis and biopsy) Pranav Thomas MD [Primary Care Provider] - (Please schedule an apt in 1-2 weeks ) Diet: Regular Addtl Attending Provider Instructions: You have gastritis, likely related to alcohol consumption Stop drinking alcohol Start taking pantoprazole 40mg twice daily You have alcoholic liver disease This will progress to liver failure if you continue to consume alcohol Pending Studies at Discharge: No Stand-Alone Forms: My [facility] [employer], Smoking Cessation Medications and DC Order Prescriptions: New pantoprazole 40 mg Tablet,Delayed Release (Dr/Ec) 40 mg PO BID 60 Days Qty: 120 RF: 0 gabapentin 300 mg Capsule 300 mg PO TID 30 Days Qty: 90 RF: 0 Continued lisinopril 20 mg tablet 20 mg PO DAILY RF: 0 ondansetron HCl 4 mg tablet 4 mg PO Q6H PRN (Reason: Nausea And Vomiting) RF: 0 potassium chloride 20 mEq tablet,ER particles/crystals 20 meq PO BID RF: 0 escitalopram oxalate 20 mg tablet 20 mg PO DAILY RF: 0 Discontinued omeprazole 40 mg capsule,delayed release(DR/EC) 40 mg PO DAILY RF: 0 nitrofurantoin monohyd/m-cryst 100 mg capsule 100 mg PO BID RF: 0 Discharge Orders: Discharge Order (Routine); Ordered 05/30/20 Ordered By: Berenice Peña Admission Data Admit Date/Time: 05/27/20 20:54 Attending Provider: Berenice Peña Admit Provider: Isidro Landeros Primary Care Provider: Pranav Thomas Other Providers: Mauri Barrett ; Alexis Gregorio Other Interventions: Discharge Summary Assessment (RN) Last Done: 05/30/20 13:47 Coding Level of Care Code D/C Day Management >30 mins Diagnoses Nausea & vomiting R11.2 Vomiting Intractability: intractable Vomiting type: unspecified Acute hyponatremia E87.1 Hypokalemia E87.6 GERD (gastroesophageal reflux disease) K21.9 Esophagitis presence: esophagitis presence not specified Hepatic steatosis K76.0 Elevated LFTs R79.89 Alcohol use disorder Ambulatory dysfunction R26.2 Prolonged QT interval R94.31 Hypomagnesemia E83.42 Proximal muscle weakness M62.81 DVT prophylaxis Z29.9
[2020-05-30] MEDS ORDERED: POTASSIUM CHLORIDE CRTAB 20 MEQ TABCR PO ONE (17:00)
== END 2020-05-30 17:23 | disposition home or self-care (01) | DRG 442 ==
LOC: ED 14:11 → 3N 14:11 → SUATTDRO 18:40 → 3N 19:29 → SUATTDRO 05-27 20:54